=== PATIENT | male | born 1940 | race Caucasian/White ===

== ENCOUNTER 2016-08-19 11:52 | Observation (INO) | payer OTHER ==
[~2016-08-19] VITALS: Ht 165.1 cm; Wt 54.0 kg
[~2016-08-19 11:52] MED LIST: AMOXIL500 MG PO; ASPIR 8181 MG PO; ATIVAN0.5 MG PO; ATORVASTATIN CA20 MG PO; ATORVASTATIN CA40 MG PO; AUGMENTIN 500M500 MG PO; CALCIUM 600600 M1 PO; LANTUS SOL100 UNIT/1 SC; LANTUS100 U/ML SC; LASIX20 MG PO; LASIX40 MG PO; LEVEMIR 10100 UNITS/ SC; LEVSIN-SL0.125 MG SL; METFORMIN500 MG PO; METOPROLOL SUC100 M1 PO; METOPROLOL SUCC25 MG; METOPROLOL SUCC50 M1 PO; NATURAL IRON65 MG PO; NORVASC 2.5 MG2.5 MG PO; NOVOLOG FLEX100 U/ML SC; NOVOLOG100 U/ML SC; OXYCODONE HCL20 M1 PO; PERCOCET 325 MG1 TA2 PO; PLAVIX 75MG TAB75 MG PO; PROAIR HFA8.5 GM INH; ROXICODONE5 MG PO; TOPROL XL25 MG PO; TYLENOL TAB 32325 MG PO; VICODIN 300 MG-1 TAB PO
[2016-08-19 12:03] LABS: ABSOLUTE BASOPHIL COUNT 0.1 /CUMM (0.0-0.2); ABSOLUTE EOSINOPHIL COUNT 0.2 /CUMM (0.0-0.7); ABSOLUTE GRANULOCYTE CT 12.5 /CUMM (1.4-6.5); ABSOLUTE LYMPH COUNT 3.6 /CUMM (1.2-3.4); ABSOLUTE MONOCYTE COUNT 1.1 /CUMM (0.10-0.60); BASOPHIL % 0.5 % (0.0-2.0); GRANULOCYTE % 71.8 % (42.2-75.2); MEAN CORPUSCULAR HGB 30.3 PG (27.0-31.0); MEAN CORPUSCULAR HGB CONC 33.2 G/DL (33.0-37.0); MEAN CORPUSCULAR VOLUME 91.3 FL (80.0-94.0); MEAN PLATELET VOLUME 8.1 FL (7.4-10.4); PLATELET COUNT 228 /CUMM (130-400); RBC DISTRIBUTION WIDTH 13.8 % (11.5-14.5); RED BLOOD CELL CT 3.62 /CUMM (4.70-6.10); WHITE BLOOD CELL COUNT 17.4 /CUMM (4.8-10.8)
--- NOTE | 2016-08-19 12:07 | NUR ---
PT BIBA S/P FOUND UNRESPONSIVE AND TIMBER FALLER UNABLE TO OBTAIN PATENT AIRWAY. PT ARRIVES BREATHING, BUT REPORTS LIKE IT FEELS LIKE THERE'S SOMETHING STUCK IN HIS THROAT. PT'S O2 SAT 100% ON RA. PT VOMITED ?EGG LIKE FOOD BOLUS.
--- NOTE | 2016-08-19 12:17 | ED GENERAL ADULT ---
History of Present Illness General Chief Complaint: General Adult Stated Complaint: BIBA FOR UNRESPONSIVE Source: EMS Exam Limitations: clinical condition, confusion, poor historian, physical impairment Vital Signs & Intake/Output Vital Signs & Intake/Output Vital Signs Date Time Temp Pulse Resp B/P Pulse O2 O2 Flow FiO2 Ox Delivery Rate 08/19 1735 97.5 105 22 124/70 95 Room Air Room Air 08/19 1629 96.0 79 24 126/73 95 Room Air 08/19 1443 97.0 80 18 124/58 100 Room Air 08/19 1343 97.7 08/19 1325 95.6 76 20 107/52 100 Nasal 2.0L Cannula 08/19 1247 100 Nasal 2.0L Cannula 08/19 1229 95.1 08/19 1209 94.1 69 20 116/59 100 Nasal 2.0L Cannula 08/19 1155 93.7 94 22 181/84 99 Room Air Room Air Allergies Coded Allergies: NO KNOWN ALLERGIES (09/27/15) Triage Nurses Notes Reviewed? yes Onset: Abrupt Duration: unknown duration Timing: recent history HPI: 08/19/16 This is a 76-year-old male who presents to the emergency department status post episode of becoming unresponsive. According to EMS the patient had eye surgery today at an outpatient center. He was found unresponsive. He seemed to have some difficulty breathing. A nasal trumpet was placed and his oxygen saturation improved and according to EMS she had trismus. The onset of the symptoms were abrupt, the duration is really unknown, the severity is significant; as his symptoms required him to come to the emergency department. In the ED he was awake but somewhat confused. His oxygen saturation was 98%. His fingerstick was repeated here was 108. He did receive 0.4 mg of Narcan. He subsequently awoke and vomited. A large amount of material came out of his airway. He said that his breathing improved. Over the next 15 minutes he became oriented 3 and fully alert. He currently has no complaints. He is still somewhat sleepy. Chest x-ray and labs were ordered. The patient was signed out to Dr. Bledsoe at 12 PM (TRENT BLEVINS DO) Reconcile Medications Aspirin (Ecotrin*) 81 MG TABLET.DR 1 TAB PO DAILY HEART/BLOOD (Reported) Atorvastatin Calcium 80 MG TABLET 1 TAB PO DAILY CHOLESTEROL (Reported) Clopidogrel Bisulfate (Clopidogrel) 75 MG TABLET 1 TAB PO DAILY BLOOD THINNER (Reported) Furosemide 20 MG TABLET 1 TAB PO DAILY DIURETIC (Reported) Insulin Aspart (Novolog) 100 UNIT/ML VIAL 7-8 UNITS SC BID DM (Reported) Insulin Glargine,Hum.rec.anlog (Lantus Solostar) 100 UNIT/ML (3 ML) INSULN.PEN 7-8 UNIT SC QPM DM (Reported) Lisinopril 5 MG TABLET 1 TAB PO DAILY BP (Reported) Metoprolol Succinate 25 MG TAB 0.5 TAB PO DAILY HEART/BP (Reported) Omeprazole 20 MG CAPSULE.DR 1 CAP PO DAILY GI (Reported) (RAKAN MORALEZ,FRANKY) Past History Travel History Traveled to [place] past 21 day No Medical History Any Pertinent Medical History? see below for history Neurological: NONE, polio EENT: NONE Cardiovascular: CHOL, HTN,HEARTY Respiratory: pneumonia Gastrointestinal: NONE Hepatic: NONE Renal: "KIDNEY PROBLEMS" Musculoskeletal: POLIO Psychiatric: NONE Endocrine: diabetes Blood Disorders: NONE Cancer(s): NONE PLUG WIRER/Reproductive: NONE Other Medical Hx: Polio History of MRSA: No History of VRE: No History of CDIFF: No Surgical History Surgical History: non-contributory, N (a review of his past admission) Psychosocial History Who do you live with Patient/Self Services at Home None What is your primary language Malay Family History Family History, If Any: BROTHER FHx: liver cancer Relation not specified for: FH: diabetes mellitus Hx Contributory? No (TRENT BLEVINS DO) Review of Systems Review of Systems Constitutional: Reports: no symptoms. EENTM: Reports: see HPI. Respiratory: Reports: short of breath. Cardiovascular: Denies: chest pain. GI: Denies: abdominal pain. Genitourinary: Reports: no symptoms. Musculoskeletal: Reports: no symptoms. Skin: Reports: no symptoms. Neurological/Psychological: Reports: confusion. Hematologic/Endocrine: Reports: no symptoms. Immunologic/Allergic: Reports: no symptoms. (TRENT BLEVINS DO) Physical Exam Physical Exam General Appearance: severe distress Head: atraumatic Eyes: Bilateral: PERRL, EOMI. Ears, Nose, Throat: normal ENT inspection, vomitus in airway -suctioned Neck: normal inspection, supple Respiratory: decreased breath sounds Cardiovascular: regular rate/rhythm Peripheral Pulses: 4+ radial (R), 4+ radial (L) Gastrointestinal: non-tender Back: decreased range of motion Extremities: no edema Neurologic/Psych: oriented x 3 (aftyer 15 minutes) Skin: intact, normal color, warm/dry Core Measures ACS in differential dx? Yes CVA/TIA Diagnosis: Yes Severe Sepsis Present: No Septic Shock Present: No (TRENT BLEVINS DO) Progress Differential Diagnoses I considered the following diagnoses in my evaluation of the patient: [Acute myocardial infarction, status post dysrhythmia, adverse drug reaction, CVA, TIA, ] Plan of Care: Orders Procedure Date/time Status Clear Liquid Diet 08/19 L Active OXYGEN SETUP (GEN) 08/19 1805 Active Saline Lock 08/[address] in observation 08/19 180 Active Vital Signs 08/19 180 Active Activity/Ambulation 08/19 180 Active Code Status 08/19 180 Active TROPONIN LEVEL 08/19 1545 Complete URINE DRUG SCREEN FOR ER ONLY 08/19 1155 Complete URINALYSIS 08/19 1155 Complete TROPONIN LEVEL 08/19 115 Complete COMPREHENSIVE METABOLIC PANEL 08/19 1154 Complete CBC WITHOUT DIFFERENTIAL 08/19 1154 Complete EKG 08/19 1154 Active Laboratory Tests 08/19/16 1630: Urine Opiates Screen < 100.00, Methadone Screen < 40, Barbiturate Screen < 60, Ur Phencyclidine Scrn < 6.00, Amphetamines Screen < 100, U Benzodiazepines Scrn < 85, Urine Cocaine Screen < 50, Urine Cannabis Screen < 5.00, Urinalysis LIGHT H, Urine Color YEL, Urine Clarity CLEAR, Urine pH 6.0, Ur Specific [place] 1.020 , Urine Protein 100 H, Urine Ketones NEG, Urine Nitrite NEG, Urine Bilirubin NEG, Urine Urobilinogen 0.2, Ur Leukocyte Esterase NEG, Ur Microscopic SEDIMENT EXAMINED, Urine RBC 1-3, Urine WBC RARE, Ur Epithelial Cells RARE, Urine Bacteria RARE H, Granular Casts RARE H, Urine Hemoglobin SMALL H, Urine Glucose NEG 08/19/16 1600: Troponin I 0.09 08/19/16 1156: Anion Gap 17 H, Estimated GFR 20 L, BUN/Creatinine Ratio 16.8, Glucose 127 H, Calcium 7.2 L, Total Bilirubin 0.4, AST 20, ALT 36, Alkaline Phosphatase 124, Troponin I < 0.01, Total Protein 6.4, Albumin 3.7, Globulin 2.7, Albumin/ Globulin Ratio 1.4, CBC w Diff MAN DIFF ORDERED, RBC 3.62 L, MCV 91.3, MCH 30.3 , RDW 13.8, MPV 8.1, Gran % 71.8, Lymphocytes % 20.6, Monocytes % 6.1, Eosinophils % 1.0, Basophils % 0.5, Absolute Granulocytes 12.5 H, Absolute Lymphocytes 3.6 H, Absolute Monocytes 1.1 H, Absolute Eosinophils 0.2, Absolute Basophils 0.1, Platelet Estimate ADEQUATE, Normocytic RBCs VERIFIED, Normochromic RBCs VERIFIED, Poikilocytosis RARE, PUBS MCHC 33.2 Initial ED EKG: NSR, pvc (TRENT BLEVINS DO) Differential Diagnoses I considered the following diagnoses in my evaluation of the patient: Diagnostic Imaging: Viewed by Me: Radiology Read, CT Scan. Discussed w/RAD: Radiology Read, CT Scan. Radiology Impression: no acute abnormality CXR Impression: no acute abnormality Rhythm Strip: normal sinus rhythm Comments: Continues to feel weak with n/v. 2nd trop elevated but WNL. (FRANKY BLEDSOE MD) Departure Departure Disposition: STILL A PATIENT Condition: Stable Referrals: SEAN CLAY MD (PCP/Family) Departure Forms: Customer Survey General Discharge Information (TRENT BLEVINS DO) Departure Clinical Impression Primary Impression: Altered mental status Secondary Impressions: Aspiration into airway, Leukocytosis, Nausea and vomiting Observation Note Spoke With: LEONA MORALEZ,SAPPHIRE Physician Advisor Notified: MINO MORALEZ,ISABELA [facility] Place Patient In: Non-ED OBS Care Area Rationale for Observation: My rational for observation is as follows cardiac monitoring IV antiemetic IV fluid advance diet serial lab exam cardiology evaluation continuing care discharge planning. (FRANKY BLEDSOE MD) Critical Care Note Critical Care Note Critical Care Time: 30-74 min (TRENT BLEVINS DO)
--- NOTE | 2016-08-19 12:18 | NUR ---
PT ASSISTED TO BED OVIEDO FOR BM. PT ALERT AND ORIENTED, BUT REPEATEDLY ASKING WHERE HE IS. PT RE-ORIENTED. PLACED ON 2L NC FOR COMFORT. WILL CONTINUE TO MONITOR.
--- NOTE | 2016-08-19 12:29 | NUR ---
PT HAD LARGE SOFT BROWN-GREEN BM, KYLIE CARE PROVIDED. RECTAL TEMP 95.1. MULTIPLE WARM BLANKETS PROVIDED. WILL CONTINUE TO MONITOR.
--- NOTE | 2016-08-19 12:30 | NUR ---
PT'S SON WOULD LIKE TO BE CONTACTED OF PLAN OF CARE: [phone]
--- NOTE | 2016-08-19 12:52 | NUR ---
PT TO CAT SCAN VIA STRETCHER NOW.
--- NOTE | 2016-08-19 12:59 | NUR ---
PT RETURNED FROM CT SCAN
--- NOTE | 2016-08-19 13:20 | CT SCAN REPORT ---
EXAMINATION: CT HEAD WITHOUT CONTRAST CLINICAL INFORMATION: Acute mental status change COMPARISON: 03/05/2015 TECHNIQUE: Contiguous axial imaging was performed from the skull base to vertex without intravenous administration of contrast. DLP: 600 mGy-cm FINDINGS: There is no evidence of acute intracranial hemorrhage or territorial infarction. No abnormal mass effect or midline shift is seen. [place] to white matter differentiation is well preserved. No extra-axial fluid collections are identified. The ventricles are normal in size. There is no abnormal attenuation within the brain parenchyma. The osseous structures and soft tissues are normal. Left-sided sphenoid disease again noted. IMPRESSION: No acute intracranial pathology. Sinus disease again noted.
--- NOTE | 2016-08-19 13:40 | RADIOLOGY REPORT ---
EXAMINATION: XR PORTABLE CHEST CLINICAL INFORMATION: Aspiration COMPARISON: 12/03/2015 TECHNIQUE: Portable AP view of the chest was obtained. FINDINGS: No focal consolidation, pulmonary edema, or pleural effusion. Stable cardiomediastinal silhouette. IMPRESSION: No acute cardiopulmonary findings.
--- NOTE | 2016-08-19 13:46 | NUR ---
PT TITRATED DOWN TO RA.
[2016-08-19] MEDS ORDERED: OMEPRAZOLE20 M2 PO (14:11)
[2016-08-19] MEDS ORDERED: FUROSEMIDE20 M1 PO (14:12)
[2016-08-19] MEDS ORDERED: LISINOPRIL5 M1 PO (14:12)
[2016-08-19] MEDS ORDERED: ATORVASTATIN CA80 M1 PO (14:12)
[2016-08-19] MEDS ORDERED: ASPIRIN EC81 M1 PO (14:13)
[2016-08-19] MEDS ORDERED: METOPROLOL SUCC25 M1 PO (14:13)
[2016-08-19] MEDS ORDERED: CLOPIDOGREL75 M1 PO (14:13)
[2016-08-19] MEDS ORDERED: LANTUS SOL100 UNIT/1 SC (14:14)
[2016-08-19] MEDS ORDERED: NOVOLOG100 UNIT/2 SC (14:14)
--- NOTE | 2016-08-19 16:33 | NUR ---
URINE TRIO SENT
--- NOTE | 2016-08-19 17:40 | NUR ---
PT PROVIDED GINGERALE, AND THEN VOMITTED. PT INFORMED TO REMAIN NPO, PT MEDICATED WITH ZOFRAN AND NS LITER AT 125 ML/HR.
--- NOTE | 2016-08-19 18:47 | NUR ---
PT USED URINAL INDEPENDENTLY BUT INFORMED TO USE CALL [facility] NEXT TIME HE NEEDS TO SIT AT EDGE OF BED FOR PT'S SAFETY. CALL [facility] REMAINS IN PLACE.
--- NOTE | 2016-08-19 19:32 | NUR ---
PT'S RM ASSIGNMENT 178 BED 1
--- NOTE | 2016-08-19 20:26 | History & Physical ---
DAVID MORALEZ,ANTOLIN 08/19/162024: General Information and HPI MD Statement: I have seen and personally examined ZIGGYANA LUISAANDRA SR and documented this H& P. The patient is a 76 year old M who presented with a patient stated chief complaint of [I was eating and I passed out]. Source of Information: patient, family History of Present Illness: Patient is a 76 year old gentleman with PMH of HTN, HLD, DM, CKD, polio, CHF, CAD s/p stent (10 years ago), who is BIBA after becoming unresponsive this morning. Most of the history is obtained from patient's son on the phone; patient lives with him. His son reports that patient had breakfast (a sandwich) about noon time today, he was in the parking lot of their apartment complex where he was found unresponsive, EMS told the son that he had the food lodges in this throat and was 'all blue'. Patient himself is more alert on admission compared to the time of arrival to the ED. He is oriented3 and states that all he remembers is that he was eating and then passed out. He reports he had nausea and vomited the foot and then does not remember the rest of the events until he came to the ED. Denies feeling dizzy or lightheaded, no chest pain, but reports shortness of breath and palpitations when he woke up this morning and when he had vomited, denies any bladder or bowel incontinence. According to the son, patient has been very weak and not willing to eat and drink and take care of himself for about two weeks now, he refuses to get finger sticks for BS check and is not clear if sugar levels are well-controlled, also his speech has become slurred. The son gives him his medications and reports to recent changes in medications. He was at an uke operator office the day before presentation for an injection into the eye, apparently due to bleeding in the eye [possibly a vitreous hemorrhage]. His son also states that the patient always has a hard time sleeping and is always in pain (in the back and the legs) . Patient himself denies fevers, reports chills every once in a while, reports chronic coughing, denies symptoms of upper respiratory infection, denies sick contact. reports diarrhea for the past two days, no urinary symptoms, denies problem swallowing. His son reported he had an episode of URI a week ago and vomiting, he also denied any problem with the patient's swallowing. Son: Philip [phone] Allergies/Medications Allergies: Coded Allergies: NO KNOWN ALLERGIES (09/27/15) Home Med list Aspirin (Ecotrin*) 81 MG TABLET.DR 1 TAB PO DAILY HEART/BLOOD (Reported) Atorvastatin Calcium 80 MG TABLET 1 TAB PO DAILY CHOLESTEROL (Reported) Clopidogrel Bisulfate (Clopidogrel) 75 MG TABLET 1 TAB PO DAILY BLOOD THINNER (Reported) Furosemide 20 MG TABLET 1 TAB PO DAILY DIURETIC (Reported) Insulin Aspart (Novolog) 100 UNIT/ML VIAL 7-8 UNITS SC BID DM (Reported) Insulin Glargine,Hum.rec.anlog (Lantus Solostar) 100 UNIT/ML (3 ML) INSULN.PEN 7-8 UNIT SC QPM DM (Reported) Lisinopril 5 MG TABLET 1 TAB PO DAILY BP (Reported) Metoprolol Succinate 25 MG TAB 0.5 TAB PO DAILY HEART/BP (Reported) Omeprazole 20 MG CAPSULE.DR 1 CAP PO DAILY GI (Reported) Past History Travel History Traveled to [place] past 21 day No Medical History Neurological: polio EENT: NONE Cardiovascular: CAD, CHF, CHOL, HTN CARDIAC STENTS Respiratory: pneumonia Gastrointestinal: NONE Hepatic: NONE Renal: CKD Musculoskeletal: POLIO Psychiatric: NONE Endocrine: TYPE II DIABETIC BUT INSULIN DEPENDENT Blood Disorders: NONE Cancer(s): NONE COSTUME DIRECTOR/Reproductive: NONE Other Medical Hx: 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 Denies: chills, diaphoresis, fever. EENTM: Reports: blurred vision. Cardiovascular: Reports: syncope. Denies: chest pain, palpitations, peripheral edema. Respiratory: Reports: cough. Denies: short of breath, sputum production. GI: Reports: diarrhea, nausea (resolved), vomiting (one time before syncope). Denies: abdominal pain. Genitourinary: Reports: no symptoms. Musculoskeletal: Reports: back pain. Skin: Reports: no symptoms. Neurological/Psychological: Reports: weakness (right leg). Hematologic/Endocrine: Reports: no symptoms. Exam & Diagnostic Data Last 24 Hrs of Vital Signs/I&O Vital Signs Date Time Temp Pulse Resp B/P Pulse O2 O2 Flow FiO2 Ox Delivery Rate 08/20 0753 98.2 90 19 120/70 96 04/ 0000 96 Room Air 08/19 2243 98.9 82 12 116/50 96 Room Air 08/19 2020 99.8 89 20 116/56 96 Room Air 08/19 1735 97.5 105 22 124/70 95 Room Air Room Air 08/19 1629 96.0 79 24 126/73 95 Room Air 08/19 1443 97.0 80 18 124/58 100 Room Air 08/19 1343 97.7 08/19 1325 95.6 76 20 107/52 100 Nasal 2.0L Cannula 08/19 1247 100 Nasal 2.0L Cannula 08/19 1229 95.1 08/19 1209 94.1 69 20 116/59 100 Nasal 2.0L Cannula 08/19 1155 93.7 94 22 181/84 99 Room Air Room Air Intake & Output 08/20 1600 08/20 0800 04/ 0000 Intake Total 860 Output Total 600 Balance 860 -600 Intake, IV 620 Intake, Oral 240 Output, Urine 600 Patient 54.431 kg Weight Physical Exam General Appearance Alert, Oriented X3, Cooperative, No Acute Distress Skin there are several old and new excoriated skin lesions on the anterior of the shins on bothe sides, more prominent on the left side. HEENT Atraumatic, EOMI, dry mucous membranes Neck Supple, No JVD Cardiovascular Normal S1, Normal S2, No Murmurs Lungs Clear to Auscultation, Normal Air Movement Abdomen Soft, No Tenderness Neurological Normal Speech, Sensation Intact, distal right lower leg foces diminished (chronic from polio) Extremities No Edema, Normal Pulses Vascular Pulses Symmetrical Diagnostic Data CXR Results SERVICE DATE: 08/19/16-1212 EXAM TYPE: RAD - XRY-PORTABLE CHEST XRAY EXAMINATION: XR PORTABLE CHEST CLINICAL INFORMATION: Aspiration COMPARISON: 12/03/2015 TECHNIQUE: Portable AP view of the chest was obtained. FINDINGS: No focal consolidation, pulmonary edema, or pleural effusion. Stable cardiomediastinal silhouette. IMPRESSION: No acute cardiopulmonary findings. Other Results SERVICE DATE: 08/19/16 EXAM TYPE: CAT - CT HEAD WO IV CONTRAST EXAMINATION: CT HEAD WITHOUT CONTRAST CLINICAL INFORMATION: Acute mental status change COMPARISON: 03/05/2015 TECHNIQUE: Contiguous axial imaging was performed from the skull base to vertex without intravenous administration of contrast. DLP: 600 mGy-cm FINDINGS: There is no evidence of acute intracranial hemorrhage or territorial infarction. No abnormal mass effect or midline shift is seen. [place] to white matter differentiation is well preserved. No extra-axial fluid collections are identified. The ventricles are normal in size. There is no abnormal attenuation within the brain parenchyma. The osseous structures and soft tissues are normal. Left-sided sphenoid disease again noted. IMPRESSION: No acute intracranial pathology. Sinus disease again noted. Assessment/Plan Assessment: Patient is a 76 year old gentleman with PMH of HTN, HLD, DM, CKD, polio, CHF, CAD s/p stent (10 years ago), who is BIBA after an episode of LOC with aspiration of food in his airway. Patient also is reported to have weakness, poor oral intake and non-compliance with sugar control, for the past 2 weeks. He is found to be dehydrated with hypernatremia metabolic acidosis, leukocytosis with no fever or CXR findings, acute decline in kidney function. He is admitted to telemetry floor for the work up of syncope, rule out ACS, evaluation for possible aspiration, and for the management of hypernatremia, dehydration and deranged kidney function. Problem list and plan: Loss of consciousness, possibly due to airway obstruction secondary to aspiration Patient passed swallow eval at bedside, denies dysphagia There is no new focal neurologic findings, CT of the head negative for acute intracranial pathology, however TIA can be in the differential and needs to be ruled out Patient has CAD history, denies chest pain or dizziness, arrhythmias. First time troponin came back 0.09, second time 0.42, no acute EKG changes noted. possible etiology is demand ischemia * telemonitoring * vital signs every shift * perform swallow evaluation * check orthostats * continue serial troponin and EKG * Cardiology consult (Dr. Cazares was called at 11:30 pm and plan was discussed) * ECHOcardiogram in am GABY on CKD, Hypernatremia, hypomagnesemia possibly due to dehydration, poor oral intake * continue IV fluids * IV magnesium sulfate * repeat BEP in am Metabolic acidosis AG metabolic acidosis, possibly due to kidney dysfunction * Continue hydration * repeat BEP Leukocytosis Absent fever, no CXR findings, UA negative for nitrite and LE. Possibly due to pneumonitis in the setting of aspiration. * watch off antibiotics * monitor vital signs * monitor CBC History of CAD s/p stent, CHF, HTN, HLD Patient has elevated troponin to 0.42, no acute EKG changes. * continue metoprolol, statin, aspirin, plavix * follow up cardiology recommendations History of DM Recently has become non-compliant with BS checks, tired of fingerstick glucose checks * HbA1C * Novolog Sliding scale * levemir PT evaluation and treatment for worsening weakness CLear liquids pending swallow eval Pain control with Tylenol, Percocet DVT px with SC heparin Full code As Ranked By This Provider Problem List: 1. Diabetes mellitus type 2 2. Hypertension 3. Acute on chronic renal failure 4. Chronic anemia 5. Elevated troponin 6. Patient is full code 7. Hyperlipidemia 8. Altered mental status 9. Nausea and vomiting 10. Leukocytosis 11. Aspiration into airway Core Measures/Miscellaneous Acute Coronary Syndrome ACS Diagnosis: No Cerebrovascular Accident CVA/TIA Diagnosis: Yes Congestive Heart Failure CHF Diagnosis: Yes Venous Thromboembolism VTE Risk Factors: Acute medical illness, Age > 40 No [facility] VTE prophylaxis d/t: No contraindications No VTE Pharm Prophylaxis d/t: No contraindications VTE Diagnosis: No VTE Type: NONE VTE Confirmed by (Test): NONE Severe Sepsis Severe Sepsis Present: No Septic Shock Septic Shock Present: No Miscellaneous Documentation Attending Case Discussed With: FRANK MADISON MD Primary Care Physician: SEAN CLAY MD Patient sees these Specialists Dr. Cazares Level of Patient Care: Telemetry KODI ADKINS 08/20/16 0059: Resident Review Statement Resident Statement: examined this patient, discussed with internist, agreed with internist, discussed with family, reviewed EMR data (avail), reviewed images, amended to note Other Findings: This is 76-year-old male with past medical history of coronary artery disease status post cardiac stent, hyperlipidemia, polio, diabetes mellitus, CK D stage III, hypertension. Patient presented to the ED via EMS status post passing out. According to the patient he was eating after he finished ophthalmic procedure and the ophthalmology clinic today when he choked and solid food. According to the EMS ( He was found unresponsive, with difficulty breathing) in ED ((was awake but somewhat confused. His oxygen saturation was 98%. His fingerstick was repeated here was 108. He did receive 0.4 mg of Narcan. He subsequently awoke and vomited. A large amount of material came out of his airway.)) . We contact his sister and she stated that for the past couple week he was slightly confused and he was complaining of dizziness. Physical examination, lab and imaging as above. Assessment: -Syncope: Syncope most likely due to choking, as the history not well clear vasovagal and cardiac causes need to be ruled out giving the patient comorbidities. Which will include echocardiogram, orthostatic vital signs need to be checked as the patient seems to be volume depleted. -Leukocytosis/questionable aspiration pneumonitis: Giving the fact the patient stated that the Estrada went to the wrong way when he was swallowing, and the leukocytosis picture despite there is no imaging evidence to still possible that he had aspiration pneumonitis but as the patient doesn't have any fever, the patient can be monitored of antibiotic for now but he will need swallow evaluation despite he passed the bedside swallow eval. -Acute on chronic kidney disease/hypernatremia/hypomagnesemia: Most likely due to volume depletion as his baseline creatinine is 2-2.5, also the hemoconcentration on the CBC. Hypernatremia improved after fluid resuscitation in the ED so its go with a picture of volume depletion. Patient will need magnesium supplement. -Positive troponin: After admission the first set of troponin came back positive at 0.49, there is no significant EKG changes, Dr. Cazares his wastewater project engineer was notified and advice to keep trending his troponin and EKG without any Anticoagulation for now. Plan: -Admit patient to telemetry floor -Vitals every shift, I and O's, -Serial troponin and EKG -Echocardiogram, cardiology consultation -Orthostatic vitals -Accu-Chek, insulin sliding scale -Hold home medication of lisinopril and Lasix for now -Physical therapy consultation -Swallowing evaluation -Full liquid diet for now -DVT prophylaxis on heparin -Full code LEONA MORALEZ, [facility] 08/20/16 0359: Attending MD Review Statement Attending Statement Attending MD Statement: examined this patient, discuss w/resident/PA/ASSEMBLY OPERATOR, agreed w/resident/PA/ASSEMBLY OPERATOR Attending Assessment/Plan: 76 yo M with h/o polio, HTN, CAD s/p stent, cardiomyopathy, chronic systolic CHF , DM, gastritis, CKD stage 4, was brought in for evaluation of episode of unresponsiveness. History as obtained from patient's sister and son. Patient unable to recall all events. He was eating an egg sandwich when he choked on the food, had difficulty breathing and became unresponsive. On ER arrival, he was more awake but confused, received Narcan with ?good response, O2 sats were stable and sugar was 108. He did have an episode of vomiting in the ER. Of note, patient has had an ophthalmic procedure as outpatient ?injection no clear details available. Over past few weeks, patient has not been eating or drinking well, and has been weak/ fatigued and c/o lightheadedness. VSS. Patient is awake, alert and oriented, has dry mucous membranes. Labs: WBC 17.4, Na 150, bicarb 15, AG 17, BUN 52, creat 3.1 (baseline 2.2-2.5), glucose 127, calcium 7.2, trop - <0.01 --> 0.09. UA neg, Utox neg. CXR and CT head neg. EKG:: Sinus tachycardia, first degree heart block, Qtc 540. Echo (2014): EF 55%. 1. Unresponsive episode followed by confusion in the setting of aspiration with possible pneumonitis. 23 Observation on Telemetry, rule out arrhythmias, check orthostats, serial EKG and troponin, Echo, Cardio consult (Dr. Cazares). Replete electrolytes to keep K > 4.0 amd Mag > 2.0. Please note, his 3rd troponin was elevated at 0.42 with no new EKG changes. Dr. Cazares aware, likely demand ischemia, will trend. Continue aspiration precautions, patient passed bedside swallow. Will keep him on a liquid diet, but obtain official swallow in AM. Leukocytosis is likely reactive, will monitor off antibiotics. If he becomes hypoxic or febrile, will consider treatment for aspiration. 2. Hypernatremia, dehydration, acute on CKD. After initial hydration, his sodium levels improved. Will continue with hydration and trend renal functions. He has metabolic acidosis in the setting of renal dysfunction. AG has resolved. Hold lisinopril and lasix. 3. Physical deconditioning. PT eval in AM. 4. Continue aspirin, plavix, statin, metoprolol, prilosec, novolog and lantus. DVT ppx Hep SC. Full code.
--- NOTE | 2016-08-19 20:30 | NUR ---
HOUSESTAFF AT BEDSIDE FOR EVAL.
--- NOTE | 2016-08-19 20:32 | NUR ---
THIS RN CALLED TELE FOR REPORT. RECEIVING NURSE STATES SHE WILL RETURN CALL WHEN LESS BUSY.
--- NOTE | 2016-08-19 21:05 | NUR ---
REPORT GIVEN TO MARCIA TRAN.
[2016-08-19 22:43] VITALS: BP 116/50
--- NOTE | 2016-08-20 06:15 | NUR ---
NURSING:PT REFUSED [address] MORIN NOTIFIED. WILL REATTEMPT TO DRAW BLOOD AGAIN WITH 0600AM LABS
[2016-08-20 07:53] VITALS: BP 120/70
[2016-08-20 08:34] LABS: ABSOLUTE EOSINOPHIL COUNT 0 /CUMM (0.0-0.7); ABSOLUTE MONOCYTE COUNT 1.1 /CUMM (0.10-0.60)
--- NOTE | 2016-08-20 09:04 | PN- Cardiology ---
Subjective Subjective: Patient seen and examined, resting comfortably in his hospital bed. Offers no complaints. Review of Systems Constitutional: Reports: see HPI. Objective Vital Signs and I&Os Vital Signs Date Time Temp Pulse Resp B/P Pulse O2 O2 Flow FiO2 Ox Delivery Rate 08/20 0753 98.2 90 19 120/70 96 08/20 0000 96 Room Air 08/19 2243 98.9 82 12 116/50 96 Room Air 08/19 2020 99.8 89 20 116/56 96 Room Air 08/19 1735 97.5 105 22 124/70 95 Room Air Room Air 08/19 1629 96.0 79 24 126/73 95 Room Air 08/19 1443 97.0 80 18 124/58 100 Room Air 08/19 1343 97.7 08/19 1325 95.6 76 20 107/52 100 Nasal 2.0L Cannula 08/19 1247 100 Nasal 2.0L Cannula 08/19 1229 95.1 08/19 1209 94.1 69 20 116/59 100 Nasal 2.0L Cannula 08/19 1155 93.7 94 22 181/84 99 Room Air Room Air Intake & Output 08/20 1600 08/20 0800 08/20 0000 08/19 1600 08/19 0800 08/19 0000 Intake Total 860 Output Total 600 Balance 860 -600 Intake, IV 620 Intake, Oral 240 Output, Urine 600 Patient 120 lb 120 lb Weight Physical Exam General Appearance: well developed/nourished, no apparent distress, alert, awake Ears, Nose, Throat: normal pharynx, normal ENT inspection Respiratory: normal breath sounds, chest non-tender, no respiratory distress Cardiovascular: normal peripheral pulses, irregularly irregular, normal s1 and s2 Abdomen: normal bowel sounds, soft, non-tender Back: normal inspection, normal range of motion Current Medications: Current Medications Sig/Ladonna Start time Last Medication Dose Route Stop Time Status Admin Acetaminophen 500 MG Q6P PRN 08/19 2045 AC PO Aspirin Buffered 81 MG DAILY 08/20 1000 AC PO Atorvastatin Calcium 80 MG 1700 08/20 1700 AC PO Clopidogrel Bisulfate 75 MG DAILY 08/20 1000 AC PO Heparin Sodium 5,000 UNIT Q8 08/19 2200 AC (Porcine) SC Insulin Aspart 0 TIDAC 08/20 0800 AC SC Insulin Detemir 7 UNITS QPM 08/19 2200 AC SC Magnesium Sulfate 1 GM Q2H 08/20 0230 DC 08/20 Dextrose/Water 100 ML IV 08/20 06 0432 Metoclopramide HCl 0 .STK-MED ONE 08/19 1830 DC .ROUTE Metoclopramide HCl 10 MG ONCE ONE 08/19 1815 DC 08/19 IV 08/19 1816 1834 Metoprolol Tartrate 12.5 MG DAILY 08/20 1000 AC PO Naloxone HCl 0.4 MG ONCE ONE 08/19 1230 DC 08/19 IV 08/19 1231 1231 Naloxone HCl 0 .STK-MED ONE 08/19 1159 DC .ROUTE Omeprazole 20 MG DAILY 08/20 1000 AC PO Ondansetron HCl 0 .STK-MED ONE 08/19 1732 DC .ROUTE Ondansetron HCl 4 MG ONCE ONE 08/19 1730 DC 08/19 IV 08/19 1731 1740 Oxycodone/ 2 TAB Q6P PRN 08/19 2045 AC Acetaminophen PO Sodium Chloride 1,000 ML ONCE ONE 08/19 2145 AC 08/20 IV 08/20 1104 0124 Sodium Chloride 1,000 ML ONCE ONE 08/19 1730 DC 08/19 IV 08/20 0129 1740 Results Last 48 Hrs of Labs/Mics: Laboratory Tests 08/20/16 0700: Troponin I Cancelled 08/20/16 0700: Anion Gap 11, Estimated GFR 20 L, BUN/Creatinine Ratio 17.3, Magnesium 1.7, Troponin I 0.40 *H, CBC w Diff Pending, WBC Pending, RBC Pending, Hgb Pending, Hct Pending, MCV Pending, MCH Pending, RDW Pending, Plt Count Pending, MPV Pending, PUBS MCHC Pending 08/19/16 2210: Magnesium 1.3 L, Troponin I 0.42 *H, TSH 0.718, Free T4 1.32 08/19/16 1630: Urine Opiates Screen < 100.00, Methadone Screen < 40, Barbiturate Screen < 60, Ur Phencyclidine Scrn < 6.00, Amphetamines Screen < 100, U Benzodiazepines Scrn < 85, Urine Cocaine Screen < 50, Urine Cannabis Screen < 5.00, Urinalysis LIGHT H, Urine Color YEL, Urine Clarity CLEAR, Urine pH 6.0, Ur Specific [place] 1.020 , Urine Protein 100 H, Urine Ketones NEG, Urine Nitrite NEG, Urine Bilirubin NEG, Urine Urobilinogen 0.2, Ur Leukocyte Esterase NEG, Ur Microscopic SEDIMENT EXAMINED, Urine RBC 1-3, Urine WBC RARE, Ur Epithelial Cells RARE, Urine Bacteria RARE H, Granular Casts RARE H, Urine Hemoglobin SMALL H, Urine Glucose NEG 08/19/16 1600: Anion Gap 13, Estimated GFR 20 L, BUN/Creatinine Ratio 17.7, Troponin I 0.09 08/19/16 1156: Anion Gap 17 H, Estimated GFR 20 L, BUN/Creatinine Ratio 16.8, Glucose 127 H, Calcium 7.2 L, Total Bilirubin 0.4, AST 20, ALT 36, Alkaline Phosphatase 124, Troponin I < 0.01, Total Protein 6.4, Albumin 3.7, Globulin 2.7, Albumin/ Globulin Ratio 1.4, CBC w Diff MAN DIFF ORDERED, RBC 3.62 L, MCV 91.3, MCH 30.3 , RDW 13.8, MPV 8.1, Gran % 71.8, Lymphocytes % 20.6, Monocytes % 6.1, Eosinophils % 1.0, Basophils % 0.5, Absolute Granulocytes 12.5 H, Absolute Lymphocytes 3.6 H, Absolute Monocytes 1.1 H, Absolute Eosinophils 0.2, Absolute Basophils 0.1, Platelet Estimate ADEQUATE, Normocytic RBCs VERIFIED, Normochromic RBCs VERIFIED, Poikilocytosis RARE, PUBS MCHC 33.2 Recent Imaging Studies: PATIENT: MYRTLE SCHAEFER PRESENT AGE: 78 PATIENT ACCOUNT NO: [id number] : [birth year] LOCATION: [facility] ORDERING PHYSICIAN: DEIDRA JARA MD SERVICE DATE: 08/18/16 EXAM TYPE: NUC - MYOCARDIAL PERFUSION IMAGING EXAMINATION: NM MYOCARDIAL PERFUSION CLINICAL INFORMATION: Hypertension COMPARISON: None TECHNIQUE: 18.9 mCi technetium Myoview for stress imaging and 32.4 mCi technetium Myoview for rest imaging. SPECT imaging in the coronal, axial and sagittal planes and gated imaging is also obtained here. FINDINGS: Review of the slice imaging demonstrates a Small mild intensity defect of the inferior wall. This may be artifactual related to diaphragm. This appears fixed. No other defects Review of the wall motion demonstrates normal wall motion. The calculated ejection fraction 57%. IMPRESSION: Mild fixed inferior defect may well be diaphragmatic attenuation. No scintigraphic evidence for pharmacologically induced myocardium at risk. Normal wall motion and ejection fraction . DICTATED BY: TRENT DYER MD DATE/TIME DICTATED:08/18/161712 POCKETED SPRING MACHINE OPERATOR:MAUREEN DATE/TIME TRANSCRIBED:08/18/161712 CONFIDENTIAL, DO NOT COPY WITHOUT APPROPRIATE AUTHORIZATION. <Electronically signed in Other Vendor System> SIGNED BY: TRENT DYER MD 08/18/16 5325 Assessment/Plan Assessment/Plan Assessment- 1. NSTEMI 2. Acute on chronic HFpEF 3. GABY on CKD 4. Acute anemia, multifactorial- acute blood loss vs 2/2 renal insufficiency vs iron deficiency 5. PAF 6. HTN 7. Goutry arthritis of right knee, flare seems to have resolved Plan- - He is guaiac positive, s/p 1 U PRBC transfusion yesterday, pending AM CBC, if worse consider GI consult (He has seen Dr. Townsend in the past) - Cardiac cath deferred for now, given no evidence of ischemia on nuclear images - BP stable, continue anti-hypertensives and ASA - Given possible GI bleed, no Heparin drip or NOAC for now, once his CBC has normalized and is stable, will readdress anti-coagulation as an outpatient - He remains in net-negative fluid balance, continue Lasix, manager people today 2.1 around his baseline Continue telemetry? No
--- NOTE | 2016-08-20 09:07 | Cons- Cardiology ---
ADEEL MORALEZ,FANY 08/20/16 0907: General Information and HPI Consulting Request Date of Consult: 08/20/16 Requested By: FRANK MADISON MD Reason for Consult: Positive troponins Source of Information: patient, family, old records Exam Limitations: no limitations History of Present Illness: Mr. Bernard is a 76-year-old gentleman with a medical history significant for diabetes mellitus, hypertension, hyperlipidemia, chronic kidney disease, HFpEF ( per echo 2014), coronary artery disease with stent placement in the obtuse marginal artery over 5 years ago, tobacco use, he presented to the emergency room the ambulance as he was found to be unresponsive in his car after possibly choking on a breakfast sandwich. This happened in his car while his sister was present. Patient states that he feels that he passed out for a few seconds and when he was awake, he noticed EMS was actively working with him. States that he might have passed out for a few seconds to minutes. Denies any chest pain during the episode or after or at present. Denies any shortness of breath. Cardiology evaluation was requested secondary to elevated troponins last night. Patient does see Dr. 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 Allergies/Medications Allergies: Coded Allergies: NO KNOWN ALLERGIES (09/27/15) Home Med List: Aspirin (Ecotrin*) 81 MG TABLET.DR 1 TAB PO DAILY HEART/BLOOD (Reported) Atorvastatin Calcium 80 MG TABLET 1 TAB PO DAILY CHOLESTEROL (Reported) Clopidogrel Bisulfate (Clopidogrel) 75 MG TABLET 1 TAB PO DAILY BLOOD THINNER (Reported) Furosemide 20 MG TABLET 1 TAB PO DAILY DIURETIC (Reported) Insulin Aspart (Novolog) 100 UNIT/ML VIAL 7-8 UNITS SC BID DM (Reported) Insulin Glargine,Hum.rec.anlog (Lantus Solostar) 100 UNIT/ML (3 ML) INSULN.PEN 7-8 UNIT SC QPM DM (Reported) Lisinopril 5 MG TABLET 1 TAB PO DAILY BP (Reported) Metoprolol Succinate 25 MG TAB 0.5 TAB PO DAILY HEART/BP (Reported) Omeprazole 20 MG CAPSULE.DR 1 CAP PO DAILY GI (Reported) Review of Systems Review of Systems Constitutional: Reports: see HPI. 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 Surgical History Surgical History: stent 2010 Family History Relations & Conditions If Any: BROTHER FHx: liver cancer Relation not specified for: FH: diabetes mellitus Psychosocial History Services at Home: None Smoking Status: Former Smoker ETOH Use: denies use Illicit Drug Use: denies illicit drug use Exam & Diagnostic Data Vital Signs and I&O Vital Signs Date Time Temp Pulse Resp B/P Pulse O2 O2 Flow FiO2 Ox Delivery Rate 08/20 0753 98.2 90 19 120/70 96 08/20 0000 96 Room Air 08/19 2243 98.9 82 12 116/50 96 Room Air 08/19 2020 99.8 89 20 116/56 96 Room Air 08/19 1735 97.5 105 22 124/70 95 Room Air Room Air 08/19 1629 96.0 79 24 126/73 95 Room Air 08/19 1443 97.0 80 18 124/58 100 Room Air 08/19 1343 97.7 08/19 1325 95.6 76 20 107/52 100 Nasal 2.0L Cannula 08/19 1247 100 Nasal 2.0L Cannula 08/19 1229 95.1 08/19 1209 94.1 69 20 116/59 100 Nasal 2.0L Cannula 08/19 1155 93.7 94 22 181/84 99 Room Air Room Air Intake & Output 08/20 1600 08/20 0800 08/20 0000 08/19 1600 08/19 0800 08/19 0000 Intake Total 860 Output Total 600 Balance 860 -600 Intake, IV 620 Intake, Oral 240 Output, Urine 600 Patient 120 lb 120 lb Weight Physical Exam General Appearance: well developed/nourished, no apparent distress, alert, awake Eyes: Bilateral: normal appearance, PERRL, EOMI. Ears, Nose, Throat: normal pharynx, normal ENT inspection Respiratory: normal breath sounds, chest non-tender Cardiovascular: regular rate/rhythm Gastrointestinal: normal bowel sounds, soft, non-tender Extremities: right foot drop Labs/Aldo Results: Laboratory Tests 08/20 08/20 08/19 0700 0700 2210 Chemistry Sodium (137 - 145 mmol/L) 143 Potassium (3.5 - 5.1 mmol/L) 4.8 Chloride (98 - 107 mmol/L) 114 H Carbon Dioxide (22 - 30 mmol/L) 17 L Anion Gap (5 - 16) 11 BUN (9 - 20 mg/dL) 52 H Creatinine (0.7 - 1.2 mg/dL) 3.0 H Estimated GFR (>60 ml/min) 20 L BUN/Creatinine Ratio (7 - 25 %) 17.3 Magnesium (1.6 - 2.3 mg/dL) 1.7 1.3 L Troponin I (<0.11 ng/ml) Cancelled 0.40 *H 0.42 *H TSH (0.270 - 4.200 uIU/mL) 0.718 Free T4 (0.78 - 2.44 ng/dL) 1.32 Hematology CBC w Diff Pending WBC Pending RBC Pending Hgb Pending Hct Pending MCV Pending MCH Pending RDW Pending Plt Count Pending MPV Pending PUBS MCHC Pending 08/19 08/19 1630 1600 Chemistry Sodium (137 - 145 mmol/L) 147 H Potassium (3.5 - 5.1 mmol/L) 4.7 Chloride (98 - 107 mmol/L) 118 H Carbon Dioxide (22 - 30 mmol/L) 15 L Anion Gap (5 - 16) 13 BUN (9 - 20 mg/dL) 53 H Creatinine (0.7 - 1.2 mg/dL) 3.0 H Estimated GFR (>60 ml/min) 20 L BUN/Creatinine Ratio (7 - 25 %) 17.7 Troponin I (<0.11 ng/ml) 0.09 Toxicology Urine Opiates Screen (>2000 NG/ML) < 100.00 Methadone Screen (>300 NG/ML) < 40 Barbiturate Screen (>200 NG/ML) < 60 Ur Phencyclidine Scrn (>25 NG/ML) < 6.00 Amphetamines Screen (>1000 NG/ML) < 100 U Benzodiazepines Scrn (>200 NG/ML) < 85 Urine Cocaine Screen (>300 NG/ML) < 50 Urine Cannabis Screen (>50 NG/ML) < 5.00 Urines Urinalysis LIGHT H Urine Color (YEL,AMB,STR) YEL Urine Clarity (CLEAR) CLEAR Urine pH (5.0 - 8.0) 6.0 Ur Specific [place] (1.001 - 1.035) 1.020 Urine Protein (NEG,<30 MG/DL) 100 H Urine Ketones (NEG) NEG Urine Nitrite (NEG) NEG Urine Bilirubin (NEG) NEG Urine Urobilinogen (0.1 - 1.0 EU/dl) 0.2 Ur Leukocyte Esterase (NEG) NEG Ur Microscopic SEDIMENT EXAMINED Urine RBC (0 - 5 /HPF) 1-3 Urine WBC (0 - 2 /HPF) RARE Ur Epithelial Cells (NONE,FEW) RARE Urine Bacteria (NEG/NONE) RARE H Granular Casts (NONE /LPF) RARE H Urine Hemoglobin (NEG) SMALL H Urine Glucose (N MG/DL) NEG 08/19 1156 Chemistry Sodium (137 - 145 mmol/L) 150 H Potassium (3.5 - 5.1 mmol/L) 4.1 Chloride (98 - 107 mmol/L) 118 H Carbon Dioxide (22 - 30 mmol/L) 15 L Anion Gap (5 - 16) 17 H BUN (9 - 20 mg/dL) 52 H Creatinine (0.7 - 1.2 mg/dL) 3.1 H Estimated GFR (>60 ml/min) 20 L BUN/Creatinine Ratio (7 - 25 %) 16.8 Glucose (65 - 99 mg/dL) 127 H Calcium (8.4 - 10.2 mg/dL) 7.2 L Total Bilirubin (0.2 - 1.3 mg/dL) 0.4 AST (17 - 59 U/L) 20 ALT (21 - 72 U/L) 36 Alkaline Phosphatase (< 127 U/L) 124 Troponin I (<0.11 ng/ml) < 0.01 Total Protein (6.3 - 8.2 g/dL) 6.4 Albumin (3.5 - 5.0 g/dL) 3.7 Globulin (1.9 - 4.2 gm/dL) 2.7 Albumin/Globulin Ratio (1.1 - 2.2 %) 1.4 Hematology CBC w Diff MAN DIFF ORDERED WBC (4.8 - 10.8 /CUMM) 17.4 H RBC (4.70 - 6.10 /CUMM) 3.62 L Hgb (14.0 - 18.0 G/DL) 11.0 L Hct (42 - 52 %) 33.0 L MCV (80.0 - 94.0 FL) 91.3 MCH (27.0 - 31.0 PG) 30.3 RDW (11.5 - 14.5 %) 13.8 Plt Count (130 - 400 /CUMM) 228 MPV (7.4 - 10.4 FL) 8.1 Gran % (42.2 - 75.2 %) 71.8 Lymphocytes % (20.5 - 51.1 %) 20.6 Monocytes % (1.7 - 9.3 %) 6.1 Eosinophils % (0 - 5 %) 1.0 Basophils % (0.0 - 2.0 %) 0.5 Absolute Granulocytes (1.4 - 6.5 /CUMM) 12.5 H Absolute Lymphocytes (1.2 - 3.4 /CUMM) 3.6 H Absolute Monocytes (0.10 - 0.60 /CUMM) 1.1 H Absolute Eosinophils (0.0 - 0.7 /CUMM) 0.2 Absolute Basophils (0.0 - 0.2 /CUMM) 0.1 Platelet Estimate (ADEQUATE) ADEQUATE Normocytic RBCs VERIFIED Normochromic RBCs VERIFIED Poikilocytosis RARE PUBS MCHC (33.0 - 37.0 G/DL) 33.2 Diagnostic Data EKG Results Rate 84, [place] 160, QRS 100, QTC 483 Sinus rhythm, LVH, nonspecific T-wave abnormalities, peaker T waves (old) CXR Results PATIENT: KIM BERNARD PRESENT AGE: 76 PATIENT ACCOUNT NO: [id number] : 39 LOCATION: [facility] ORDERING PHYSICIAN: FRANKY BLEDSOE MD SERVICE DATE: 08/19/16 EXAM TYPE: RAD - XRY-PORTABLE CHEST XRAY EXAMINATION: XR PORTABLE CHEST CLINICAL INFORMATION: Aspiration COMPARISON: 12/03/2015 TECHNIQUE: Portable AP view of the chest was obtained. FINDINGS: No focal consolidation, pulmonary edema, or pleural effusion. Stable cardiomediastinal silhouette. IMPRESSION: No acute cardiopulmonary findings. DICTATED BY: IRINA AGOSTO MD DATE/TIME DICTATED:08/19/161332 X RAY CONTROL EQUIPMENT REPAIRER:MAUREEN DATE/TIME TRANSCRIBED:08/19/161332 CONFIDENTIAL, DO NOT COPY WITHOUT APPROPRIATE AUTHORIZATION. <Electronically signed in Other Vendor System> SIGNED BY: IRINA AGOSTO MD 09/01 1340 Other Results PATIENT: KIM BERNARD PRESENT AGE: 76 PATIENT ACCOUNT NO: [id number] : 39 LOCATION: [facility] ORDERING PHYSICIAN: TRENT BLEVINS DO SERVICE DATE: 08/19/16-1217 EXAM TYPE: CAT - CT HEAD WO IV CONTRAST EXAMINATION: CT HEAD WITHOUT CONTRAST CLINICAL INFORMATION: Acute mental status change COMPARISON: 03/05/2015 TECHNIQUE: Contiguous axial imaging was performed from the skull base to vertex without intravenous administration of contrast. DLP: 600 mGy-cm FINDINGS: There is no evidence of acute intracranial hemorrhage or territorial infarction. No abnormal mass effect or midline shift is seen. [place] to white matter differentiation is well preserved. No extra-axial fluid collections are identified. The ventricles are normal in size. There is no abnormal attenuation within the brain parenchyma. The osseous structures and soft tissues are normal. Left-sided sphenoid disease again noted. IMPRESSION: No acute intracranial pathology. Sinus disease again noted. DICTATED BY: SYDNIE POWELL MD DATE/TIME DICTATED:08/19/161315 X RAY CONTROL EQUIPMENT REPAIRER:MAUREEN DATE/TIME TRANSCRIBED:08/19/161315 CONFIDENTIAL, DO NOT COPY WITHOUT APPROPRIATE AUTHORIZATION. <Electronically signed in Other Vendor System> SIGNED BY: SYDNIE POWELL MD 08/19/16 1320 Assessment/Plan Assessment/Plan Assessment- 1. Positive troponins, likely 2/2 demand vs reocclusive CAD 2. Syncope, witnessed liekly 2/2 choking and possible aspiration 3. HTN 4. HLD 5. HFrEF, chronic 6. Hypomagnesemia 7. DM 8. CKD Stage III 9. Known CAD s/p stent of the obtuse marginal branch Plan- - Continue tele monitoring - No heparin drip for now - Continue ASA, plavix, statin, beta isabel - Echocardiogram (please make sure this gets done today) - Replete magnesium - Monitor for aspiration PNA - Strict I's and O's - Add on pro-BNP to admission labs - NPO after midnight for Presantine stress test in the morning Problem List: 1. Leukocytosis 2. Aspiration into airway 3. Altered mental status 4. HTN (hypertension) 5. CKD (chronic kidney disease) Consult Acknowledgment - Thank you for your consult request. JOSE ALFREDO GUSTAFSON MD 08/20/16 1200: Assessment/Plan Assessment/Plan Attending addendum: I have seen and examined the patient. The case was discussed with the patient and the housestaff / primary attending. The patient's elevated troponin is most likely related to demand ischemia, however, in view of his known CAD and prior presentation, I would suggest that we perform a PTN nuclear stress test prior to discharge to guide further management. Echo pending. Consult Acknowledgment - Thank you for your consult request.
[2016-08-20 09:33] LABS: ABSOLUTE BASOPHIL COUNT 0 /CUMM (0.0-0.2); ABSOLUTE GRANULOCYTE CT 16.8 /CUMM (1.4-6.5); ABSOLUTE LYMPH COUNT 1.4 /CUMM (1.2-3.4); BASOPHIL % 0.1 % (0.0-2.0); EOSINOPHIL % 0 % (0-5); MEAN CORPUSCULAR HGB 30.6 PG (27.0-31.0); MEAN CORPUSCULAR HGB CONC 33.4 G/DL (33.0-37.0); MEAN CORPUSCULAR VOLUME 91.5 FL (80.0-94.0); PLATELET COUNT 161 /CUMM (130-400); RBC DISTRIBUTION WIDTH 13.7 % (11.5-14.5); WHITE BLOOD CELL COUNT 19.3 /CUMM (4.8-10.8)
[2016-08-20 10:00] LABS: HEMATOCRIT 26.6 % (42-52)
--- NOTE | 2016-08-20 11:18 | PN- Housestaff ---
Subjective Follow-up For: Unresponsiveness Complaints: no complaints Tele-Events Since Last Visit: Sinus rhythm, heart rate 75-83, no overnight events were noted. Subjective: He was comfortable this morning. Vitals were stable overnight. Did not have any complaints. Review of Systems Constitutional: Reports: see HPI. Objective Last 24 Hrs of Vital Signs/I&O Vital Signs Date Time Temp Pulse Resp B/P Pulse O2 O2 Flow FiO2 Ox Delivery Rate 08/20 1106 98.2 90 19 120/70 08/20 0753 98.2 90 19 120/70 96 08/20 0000 96 Room Air 08/19 2243 98.9 82 12 116/50 96 Room Air 08/19 2020 99.8 89 20 116/56 96 Room Air 08/19 1735 97.5 105 22 124/70 95 Room Air Room Air 08/19 1629 96.0 79 24 126/73 95 Room Air 08/19 1443 97.0 80 18 124/58 100 Room Air 08/19 1343 97.7 08/19 1325 95.6 76 20 107/52 100 Nasal 2.0L Cannula 08/19 1247 100 Nasal 2.0L Cannula 08/19 1229 95.1 08/19 1209 94.1 69 20 116/59 100 Nasal 2.0L Cannula 08/19 1155 93.7 94 22 181/84 99 Room Air Room Air Intake & Output 08/20 1600 08/20 0800 08/20 0000 Intake Total 860 Output Total 600 Balance 860 -600 Intake, IV 620 Intake, Oral 240 Output, Urine 600 Patient 120 lb Weight Physical Exam General Appearance: No Acute Distress Other Physical Findings: General Exam: AAOx3, No acute distress, Skin: No rashes, no breakdown HEENT: PERRLA, EOMI Neck: Supple, No JVD No cervical lymphadenopathy CVS: Reg Rate, Normal S1,S2, No MGR Resp: Normal air entry, no ronchi/rales Abdomen: Soft, No tenderness, Normal Bowel Sounds Neuro: Normal Speech, Strength 5/5 b/l x 4 extremities, Sensation intact, CN III -XII NL, Reflexes 2+ Extremities: No cyanosis, pedal edema Current Medications: Current Medications Sig/Ladonna Start time Last Medication Dose Route Stop Time Status Admin Acetaminophen 500 MG Q6P PRN 08/19 2044 AC PO Aspirin Buffered 81 MG DAILY 08/20 1000 AC 08/20 PO 1106 Atorvastatin Calcium 80 MG 1700 08/20 1700 AC PO Clopidogrel Bisulfate 75 MG DAILY 08/20 1000 AC 08/20 PO 1106 Heparin Sodium 5,000 UNIT Q8 08/19 2200 AC (Porcine) SC Insulin Aspart 0 TIDAC 08/20 0800 AC SC Insulin Detemir 7 UNITS QPM 08/19 2200 AC SC Magnesium Sulfate 1 GM Q2H 08/20 0230 DC 08/20 Dextrose/Water 100 ML IV 08/20 0629 0432 Metoclopramide HCl 0 .STK-MED ONE 08/19 1830 DC .ROUTE Metoclopramide HCl 10 MG ONCE ONE 08/19 1815 DC 08/19 IV 08/19 1816 1834 Metoprolol Tartrate 12.5 MG DAILY 08/20 1000 AC 08/20 PO 1106 Naloxone HCl 0.4 MG ONCE ONE 08/19 1230 DC 08/19 IV 08/19 1231 1231 Naloxone HCl 0 .STK-MED ONE 08/19 1159 DC .ROUTE Omeprazole 20 MG DAILY 08/20 1000 AC 08/20 PO 1105 Ondansetron HCl 0 .STK-MED ONE 08/19 1732 DC .ROUTE Ondansetron HCl 4 MG ONCE ONE 08/19 1730 DC 08/19 IV 08/19 1731 1740 Oxycodone/ 2 TAB Q6P PRN 08/19 2045 AC Acetaminophen PO Sodium Chloride 1,000 ML ONCE ONE 08/19 2145 DC 08/20 IV 08/20 1104 0124 Sodium Chloride 1,000 ML ONCE ONE 08/19 1730 DC 08/19 IV 08/20 0129 1740 Last 24 Hrs of Lab/Aldo Results Last 24 Hrs of Labs/Mics: Laboratory Tests 08/20/16 0700: Troponin I Cancelled 08/20/16 0700: Anion Gap 11, Estimated GFR 20 L, BUN/Creatinine Ratio 17.3, Magnesium 1.7, Troponin I 0.40 *H, CBC w Diff NO MAN DIFF REQ, RBC 2.90 L, MCV 91.5, MCH 30.6, RDW 13.7, MPV 9.0, Gran % 87.0 H, Lymphocytes % 7.0 L, Monocytes % 5.9, Eosinophils % 0, Basophils % 0.1, Absolute Granulocytes 16.8 H, Absolute Lymphocytes 1.4, Absolute Monocytes 1.1 H, Absolute Eosinophils 0, Absolute Basophils 0, PUBS MCHC 33.4 08/19/16 2210: Magnesium 1.3 L, Troponin I 0.42 *H, TSH 0.718, Free T4 1.32 08/19/16 1630: Urine Opiates Screen < 100.00, Methadone Screen < 40, Barbiturate Screen < 60, Ur Phencyclidine Scrn < 6.00, Amphetamines Screen < 100, U Benzodiazepines Scrn < 85, Urine Cocaine Screen < 50, Urine Cannabis Screen < 5.00, Urinalysis LIGHT H, Urine Color YEL, Urine Clarity CLEAR, Urine pH 6.0, Ur Specific [place] 1.020 , Urine Protein 100 H, Urine Ketones NEG, Urine Nitrite NEG, Urine Bilirubin NEG, Urine Urobilinogen 0.2, Ur Leukocyte Esterase NEG, Ur Microscopic SEDIMENT EXAMINED, Urine RBC 1-3, Urine WBC RARE, Ur Epithelial Cells RARE, Urine Bacteria RARE H, Granular Casts RARE H, Urine Hemoglobin SMALL H, Urine Glucose NEG 08/19/16 1600: Anion Gap 13, Estimated GFR 20 L, BUN/Creatinine Ratio 17.7, Troponin I 0.09 08/19/16 1156: Anion Gap 17 H, Estimated GFR 20 L, BUN/Creatinine Ratio 16.8, Glucose 127 H, Calcium 7.2 L, Total Bilirubin 0.4, AST 20, ALT 36, Alkaline Phosphatase 124, Troponin I < 0.01, Total Protein 6.4, Albumin 3.7, Globulin 2.7, Albumin/ Globulin Ratio 1.4, CBC w Diff MAN DIFF ORDERED, RBC 3.62 L, MCV 91.3, MCH 30.3 , RDW 13.8, MPV 8.1, Gran % 71.8, Lymphocytes % 20.6, Monocytes % 6.1, Eosinophils % 1.0, Basophils % 0.5, Absolute Granulocytes 12.5 H, Absolute Lymphocytes 3.6 H, Absolute Monocytes 1.1 H, Absolute Eosinophils 0.2, Absolute Basophils 0.1, Platelet Estimate ADEQUATE, Normocytic RBCs VERIFIED, Normochromic RBCs VERIFIED, Poikilocytosis RARE, PUBS MCHC 33.2 Assessment/Plan Assessment: Mr. Bernard is a 76-year-old man with a past history of CHF, chronic kidney disease, coronary artery disease status post stent (type unclear), diabetes is being evaluated for unresponsiveness. As per the history, he choked on food when he had difficulty breathing and became unresponsive. At the time of admission, temperature 97.5, pulse rate 79, respiration 24, blood pressure 126/78, 95% on room air. Lab findings indicated to be 17.4, hemoglobin 11.0 (baseline 9.0), MCV 91.3, platelets 228. Sodium 147, chloride 118 ( elevated), bicarbonate 15 (low likely from C daily), BUN 53, serum creatinine 3.0. Magnesium 1.3, serial cardiac enzymes 0.09, 0.42, 0.40. Vitamin D 7.2 ( low), TSH 0.718, free T4 1 0.32. Radiological findings-CT head was negative for any acute changes. Chest x-ray was unremarkable. EKG revealed first-degree heart block. Last echocardiogram was done in 2013. Differential diagnosis: #1 syncope #2 TIA/CVA Below is the problem list and plan: #1 syncope-likely due to choking. No arrhythmias were noted in the last 24 hours. Orthostatics positive BP lying 170/60, standing 120/60. Continue fluids. Echocardiogram-pending. Cardiology has been consulted for advice. #2 electrolyte abnormalities-likely due to chronic kidney disease. Elevated phosphate, low calcium, low magnesium, low bicarbonate. #3 elevated troponins-with no EKG changes. Cardiology consult has been obtained. Persantine stress test in the a.m. Patient been made nothing by mouth. #4 diabetes-continues to have elevated blood glucose. Have not resumed long- acting yet. Increased of short-acting insulin to medium. Check HbA1c. #5 DVT prophylaxis-subcutaneous heparin #6 elevated leukocytes-aspiration pneumonia/pneumonitis and the differential. Could also be reactive. Currently watch off antibiotics. Urinalysis did not reveal any leukocyte esterase/nitrites positivity. 7 chronic kidney disease-serum creatinine 3.0. Baseline 2.5. At this time continue to monitor. Problem List: 1. Leukocytosis 2. Renal insufficiency 3. Diabetes mellitus 4. Hyperlipidemia Pain Ratin Pain Location: Back Pain Goal: Pain 4 or less Pain Plan: Oxycodone Tylenol Tomorrow's Labs & Rationales: C BC-to monitor for leukocytosis BEP to monitor serum creatinine.
[2016-08-20 12:00] VITALS: BP 120/60
--- NOTE | 2016-08-20 14:49 | ECHOCARDIOGRAM REPORT ---
KIM PERALES Age: 76 : 1940 Gender: M Exam Date: 08/20/2016 10:57 Exam Location: 1 [address] Ht (in): 65 Wt (lb): 120 BSA: 1.58 BP: 116 / 50 Ordering Physician: Kodi Adkins MD Referring Physician: KODI ADKINS MD Technologist: Elaina Vora Room Number: [id number] Indications: PRESYNCOPE/SYNCOPE Rhythm: Sinus Technical Quality: Very technically difficult study FINDINGS Left Ventricle Normal size left ventricle. Normal left ventricular ejection fraction visually estimated at >60%. No obvious regional wall motion abnormalities. Mild concentric left ventricular hypertrophy. Right Ventricle Normal right ventricular size and function. Right Atrium Normal right atrial size. Left Atrium Normal left atrial size. Mitral Valve Mitral annular calcification. Mitral valve thickened. Trace mitral regurgitation. Aortic Valve Diffuse thickening (sclerosis) of the aortic valve cusps without reduced excursion. No aortic stenosis. No aortic regurgitation. Tricuspid Valve Tricuspid valve not well visualized, grossly normal. Trace tricuspid regurgitation. No evidence of pulmonary hypertension. Pulmonic Valve Pulmonic valve not well visualized, grossly normal. Trace pulmonic regurgitation. Pericardium No pericardial effusion. Great Vessels Normal size aortic root. CONCLUSIONS Normal size left ventricle. Normal left ventricular ejection fraction visually estimated at > 60%. Mild concentric left ventricular hypertrophy. Trace mitral regurgitation. Trace tricuspid regurgitation. Trace pulmonic regurgitation. Rubio Cazares M.D. (Electronically Signed) Final Date: 20 August 2016 14:48 MEASUREMENTS (Male / Female) Normal Values 2D ECHO LV Diastolic Diameter PLAX 4.2 cm 4.2 - 5.9 / 3.9 - 5.3 cm LV Systolic Diameter PLAX 2.9 cm 2.1 - 4.0 cm LV Fractional Shortening PLAX 31.0 % 25 - 46 % LV Ejection Fraction 2D Teich 59.0 % IVS Diastolic Thickness 1.3 cm LVPW Diastolic Thickness 1.3 cm LV Relative Wall Thickness 0.6 RV Internal Dim ED PLAX 3.7 cm 1.9 - 3.8 cm LVOT Diameter 2.2 cm Aortic Root Diameter 2.7 cm LA Systolic Diameter LX 3.5 cm 3.0 - 4.0 / 2.7 - 3.8 cm LA Volume 58.0 cm 18 - 58 / 22 - 52 cm Ascending Aorta Diameter 2.6 cm DOPPLER AV Peak Velocity 142.0 cm/s AV Peak Gradient 8.1 mmHg AV Mean Velocity 97.9 cm/s AV Mean Gradient 4.0 mmHg AV Velocity Time Integral 33.4 cm LVOT Peak Velocity 54.9 cm/s LVOT Peak Gradient 1.2 mmHg LVOT Mean Velocity 41.2 cm/s LVOT Mean Gradient 1.0 mmHg LVOT Velocity Time Integral 8.9 cm LVOT Stroke Volume 34.0 cm AV Area Cont Eq vti 1.0 cm AV Area Cont Eq pk 1.5 cm MV Peak Velocity 114.0 cm/s MV Peak Gradient 5.2 mmHg MV Mean Velocity 61.0 cm/s MV Mean Gradient 2.0 mmHg Mitral E Point Velocity 76.5 cm/s Mitral A Point Velocity 102.0 cm/s Mitral E to A Ratio 0.8 MV PHT Velocity 79.5 cm/s MV Deceleration O'Brien 393.0 cm/s MV Pressure Half Time 60.7 ms MV Area PHT 3.6 cm MV Deceleration Time 194.0 ms TR Peak Velocity 167.0 cm/s TR Peak Gradient 11.2 mmHg Right Atrial Pressure 5.0 mmHg Pulmonary Artery Systolic Pressu 16.2 mmHg Right Ventricular Systolic Press 16.2 mmHg PV Peak Velocity 93.7 cm/s PV Peak Gradient 3.5 mmHg PV Mean Velocity 69.9 cm/s PV Mean Gradient 2.0 mmHg PV Velocity Time Integral 23.6 cm LV E' Lateral Velocity 6.7 cm/s Mitral E to LV E' Lateral Ratio 11.4 LV E' Septal Velocity 4.6 cm/s Mitral E to LV E' Septal Ratio 16.7
--- NOTE | 2016-08-20 15:27 | PN- Att Addend ---
Attending MD Review Statement Attending Statement Attending MD Statement: examined this patient, discuss w/resident/PA/STRIP DEBURRER, agreed w/resident/PA/STRIP DEBURRER, discussed with family, reviewed EMR data (avail), discussed w/ nursing, discussed w/case mgmt Attending Assessment/Plan: Laboratory Tests 08/20/16 0700: Troponin I Cancelled 08/20/16 0700: Anion Gap 11, Estimated GFR 20 L, BUN/Creatinine Ratio 17.3, Hemoglobin A1c Pending, Magnesium 1.7, Troponin I 0.40 *H, 25-OH Vitamin D Total 7.2 L, CBC w Diff NO MAN DIFF REQ, RBC 2.90 L, MCV 91.5, MCH 30.6, RDW 13.7, MPV 9.0, Gran % 87.0 H, Lymphocytes % 7.0 L, Monocytes % 5.9, Eosinophils % 0, Basophils % 0.1 , Absolute Granulocytes 16.8 H, Absolute Lymphocytes 1.4, Absolute Monocytes 1.1 H, Absolute Eosinophils 0, Absolute Basophils 0, PUBS MCHC 33.4 08/19/16 2210: Magnesium 1.3 L, Troponin I 0.42 *H, TSH 0.718, Free T4 1.32 08/19/16 1630: Urine Opiates Screen < 100.00, Methadone Screen < 40, Barbiturate Screen < 60, Ur Phencyclidine Scrn < 6.00, Amphetamines Screen < 100, U Benzodiazepines Scrn < 85, Urine Cocaine Screen < 50, Urine Cannabis Screen < 5.00, Urinalysis LIGHT H, Urine Color YEL, Urine Clarity CLEAR, Urine pH 6.0, Ur Specific [place] 1.020 , Urine Protein 100 H, Urine Ketones NEG, Urine Nitrite NEG, Urine Bilirubin NEG, Urine Urobilinogen 0.2, Ur Leukocyte Esterase NEG, Ur Microscopic SEDIMENT EXAMINED, Urine RBC 1-3, Urine WBC RARE, Ur Epithelial Cells RARE, Urine Bacteria RARE H, Granular Casts RARE H, Urine Hemoglobin SMALL H, Urine Glucose NEG 08/19/16 1600: Anion Gap 13, Estimated GFR 20 L, BUN/Creatinine Ratio 17.7, Troponin I 0.09 Vital Signs Date Time Temp Pulse Resp B/P Pulse O2 O2 Flow FiO2 Ox Delivery Rate 08/20 1200 72 120/60 08/20 1106 98.2 90 19 120/70 08/20 0753 98.2 90 19 120/70 96 /05 0000 96 Room Air 08/19 2243 98.9 82 12 116/50 96 Room Air 08/20 2019 99.8 89 20 116/56 96 Room Air 08/19 1735 97.5 105 22 124/70 95 Room Air Room Air 08/19 1629 96.0 79 24 126/73 95 Room Air Patient seen and examined at bedside. Discussed with patient's family and patient the care plan. 76-year-old male resented with chief complaint of choking on food and becoming unresponsive for about 2 minutes post the episode. Patient does have history of underlying coronary artery disease status post stenting and CHF as well as CK D stage IV. Patient emergency room was found to have leukocytosis with white count of 17.4 and his first set of troponin was 0.09. His repeat troponin has gone up to 0.42 and the third troponin was 0.40. Given his previous history of coronary artery disease we will repeat an echocardiogram and do stress test tomorrow. Myocardial infarction type II-likely secondary to demand ischemia but in patient with underlying coronary artery disease we will do a stress test and repeat an echocardiogram. Leukocytosis-unclear etiology may be related to stress or from aspiration pneumonitis. Patient is staying afebrile but we'll continue to monitor his vitals closely. Vitamin D deficiency-his vitamin D level is 7.2 we will start him on high dose vitamin D 50,000 units every weekly for 8 weeks. Hypocalcemia-we will start him on calcium supplementation with 500 twice a day of calcium carbonate. Hyperphosphatemia-Will switch his diet to low phosphorus renal diet. Uncontrolled diabetes mellitus-Will adjust his insulin dose accordingly. We'll continue to monitor his sugars closely. Patient has been placed in observation status. Plan discharge tomorrow if stress test negative.
[2016-08-20 15:30] VITALS: BP 122/64
[2016-08-21 00:07] VITALS: BP 132/60
--- NOTE | 2016-08-21 08:20 | PN- Housestaff ---
Subjective Follow-up For: Unresponsiveness Complaints: no complaints Tele-Events Since Last Visit: Normal sinus rhythm, heart rate 61-98, no overnight events were noted. Subjective: Patient was comfortable. Did not have any complaints. He had been kept nothing by mouth for a possible stress test in the a.m. White as were stable overnight. He remained afebrile. No chest pain, shortness of breath, lightheadedness, weakness in upper or lower extremities. Review of Systems Constitutional: Reports: see HPI. Objective Last 24 Hrs of Vital Signs/I&O Vital Signs Date Time Temp Pulse Resp B/P Pulse O2 O2 Flow FiO2 Ox Delivery Rate 08/21 0007 99.4 88 20 132/60 95 04/ 0000 96 Room Air / 1530 98.6 73 20 122/64 95 Room Air 04/ 1200 72 120/60 04/05 1106 98.2 90 19 120/70 Intake & Output 08/21 1600 08/21 0800 04/ 0000 Intake Total 240 Output Total 1060 450 Balance -1060 -210 Intake, Oral 240 Output, Urine 1060 450 Patient 119 lb Weight Physical Exam General Appearance: No Acute Distress Other Physical Findings: General Exam: AAOx3, No acute distress, slurred speech Skin: No rashes, no breakdown HEENT: PERRLA, EOMI Neck: Supple, No JVD No cervical lymphadenopathy CVS: Reg Rate, Normal S1,S2, No MGR Resp: Normal air entry, no ronchi/rales Abdomen: Soft, No tenderness, Normal Bowel Sounds Neuro: Normal Speech, Strength 5/5 b/l x 4 extremities, Sensation intact, CN III -XII NL, Reflexes 2+ Extremities: No cyanosis, pedal edema Current Medications: Current Medications Sig/Ladonna Start time Last Medication Dose Route Stop Time Status Admin Acetaminophen 500 MG Q6P PRN 08/19 2045 AC PO Aspirin Buffered 81 MG DAILY 08/20 1000 AC 08/20 PO 1106 Atorvastatin Calcium 80 MG 1700 08/20 1700 AC 08/20 PO 1650 Calcium Carbonate 500 MG DAILY 08/21 1000 AC PO Clopidogrel Bisulfate 75 MG DAILY 08/20 1000 AC 08/20 PO 1106 Dipyridamole 30 MG ONE ONE 08/21 1200 AC Dextrose/Water 34 ML IV 08/21 1559 Ergocalciferol 50,000 IU QWED 09/03 0700 AC PO Heparin Sodium 5,000 UNIT Q8 08/19 2200 AC 08/21 (Porcine) DE 0627 Insulin Aspart 0 TIDAC 08/20 1700 DC 08/20 SC 08/21 0000 1650 Insulin Aspart 0 TIDAC 08/20 0800 DC 08/20 DE 1238 Insulin Detemir 7 UNITS QPM 08/19 2200 AC 08/20 SC 2143 Insulin Human Regular 0 Q6 08/21 0600 AC 08/21 DE 0649 Metoprolol Tartrate 12.5 MG DAILY 08/20 1000 DC 08/20 PO 1106 Omeprazole 20 MG DAILY 08/20 1000 AC 08/20 PO 1105 Oxycodone/ 2 TAB Q6P PRN 08/19 2045 AC Acetaminophen PO Last 24 Hrs of Lab/Aldo Results Last 24 Hrs of Labs/Mics: Laboratory Tests 08/21/16 0635: Anion Gap 10, Estimated GFR 21 L, BUN/Creatinine Ratio 17.6, CBC w Diff NO MAN DIFF REQ, RBC 2.97 L, MCV 91.3, MCH 30.1, RDW 13.7, MPV 9.0, Gran % 79.5 H, Lymphocytes % 12.7 L, Monocytes % 6.9, Eosinophils % 0.6, Basophils % 0.3, Absolute Granulocytes 10.5 H, Absolute Lymphocytes 1.7, Absolute Monocytes 0.9 H, Absolute Eosinophils 0.1, Absolute Basophils 0, PUBS MCHC 33.0 Assessment/Plan Assessment: Mr. Bernard is a 76-year-old man with a past history of CHF, chronic kidney disease, coronary artery disease status post stent (type unclear), diabetes is being evaluated for unresponsiveness. As per the history, he choked on food when he had difficulty breathing and became unresponsive. Labs in the last 24 hours-carotid Dopplers did not reveal any significant stenosis in the carotid arteries. Echo still pending. Differential diagnosis: #1 syncope #2 TIA/CVA Below is the problem list and plan: #1 syncope-likely due to choking. No arrhythmias were noted in the last 24 hours. Orthostatics positive BP lying 170/60, standing 120/60. . Check Orthostats again. Echocardiogram-pending. Cardiology has been consulted for advice. #2 electrolyte abnormalities-likely due to chronic kidney disease. Elevated phosphate, low calcium, low magnesium, low bicarbonate. #3 elevated troponins-with no EKG changes. Cardiology consult has been obtained. Persantine stress test in the a.m. Patient been made nothing by mouth. #4 diabetes-continues to have elevated blood glucose. Have not resumed long- acting yet. Increased of short-acting insulin to medium. HbA1c. Blood sugar levels 194, 99. Incidental increased to 401 yesterday. Unsure of the diet. No change in current insulin regimen at this time. #5 DVT prophylaxis-subcutaneous heparin #6 elevated leukocytes-aspiration pneumonia/pneumonitis and the differential. Could also be reactive. Currently watch off antibiotics. Urinalysis did not reveal any leukocyte esterase/nitrites positivity. Leukocytosis improving. 7 chronic kidney disease-serum creatinine 2.9. Baseline 2.5. At this time continue to monitor. Problem List: 1. Nausea and vomiting 2. Leukocytosis 3. Altered mental status Pain Ratin Pain Location: None Pain Goal: Pain 4 or less Pain Plan: Tylenol when necessary Tomorrow's Labs & Rationales: No labs necessary, patient to be discharged.
[2016-08-21 08:27] LABS: ABSOLUTE BASOPHIL COUNT 0 /CUMM (0.0-0.2); ABSOLUTE EOSINOPHIL COUNT 0.1 /CUMM (0.0-0.7); ABSOLUTE GRANULOCYTE CT 10.5 /CUMM (1.4-6.5); ABSOLUTE LYMPH COUNT 1.7 /CUMM (1.2-3.4); ABSOLUTE MONOCYTE COUNT 0.9 /CUMM (0.10-0.60); BASOPHIL % 0.3 % (0.0-2.0); EOSINOPHIL % 0.6 % (0-5); GRANULOCYTE % 79.5 % (42.2-75.2); HEMATOCRIT 27.1 % (42-52); MEAN CORPUSCULAR HGB 30.1 PG (27.0-31.0); MEAN CORPUSCULAR VOLUME 91.3 FL (80.0-94.0); PLATELET COUNT 170 /CUMM (130-400); RBC DISTRIBUTION WIDTH 13.7 % (11.5-14.5); RED BLOOD CELL CT 2.97 /CUMM (4.70-6.10); WHITE BLOOD CELL COUNT 13.2 /CUMM (4.8-10.8)
[2016-08-21 08:30] VITALS: BP 114/72
--- NOTE | 2016-08-21 13:02 | PN- Cardiology ---
Subjective Subjective: Stable with no recurrent symptoms Objective Vital Signs and I&Os Vital Signs Date Time Temp Pulse Resp B/P Pulse O2 O2 Flow FiO2 Ox Delivery Rate 08/21 0830 98.8 84 18 114/72 96 Room Air 08/21 0007 99.4 88 20 132/60 95 / 0000 96 Room Air / 1530 98.6 73 20 122/64 95 Room Air Intake & Output 08/21 1600 08/21 0800 08/21 0000 08/20 1600 08/20 0808/20 0000 Intake Total 240 780 860 Output Total 1060 450 375 600 Balance -1060 -210 405 860 -600 Intake, IV 300 620 Intake, Oral 240 480 240 Output, Urine 1060 450 375 600 Patient 119 lb 120 lb Weight Current Medications: Current Medications Sig/Ladonna Start time Last Medication Dose Route Stop Time Status Admin Acetaminophen 500 MG Q6P PRN 08/19 204 AC PO Aspirin Buffered 81 MG DAILY 08/20 1000 AC 08/20 PO 1106 Atorvastatin Calcium 80 MG 1700 08/20 1700 AC 08/20 PO 1650 Calcium Carbonate 500 MG DAILY 08/21 1000 AC PO Clopidogrel Bisulfate 75 MG DAILY 08/20 1000 AC 08/20 PO 1106 Dipyridamole 30 MG ONE ONE 08/21 1200 AC Dextrose/Water 34 ML IV 08/21 1559 Ergocalciferol 50,000 IU QWED 09/03 0700 AC PO Heparin Sodium 5,000 UNIT Q8 08/19 2200 AC 08/21 (Porcine) [place] 0627 Insulin Aspart 0 TIDAC 08/20 1700 DC 08/20 IL 08/21 0000 1650 Insulin Aspart 0 TIDAC 08/20 0800 NE 08/20 IL 1238 Insulin Detemir 7 UNITS QPM 08/19 2200 AC 08/20 [place] 2143 Insulin Human Regular 0 Q6 08/21 0600 08/21 [place] 0649 Metoprolol Tartrate 12.5 MG DAILY 08/20 1000 DC 08/20 PO 1106 Omeprazole 20 MG DAILY 08/20 1000 AC 08/20 PO 1105 Oxycodone/ 2 TAB Q6P PRN 08/19 204 AC Acetaminophen PO Results Last 48 Hrs of Labs/Mics: Laboratory Tests 08/21/16 0635: Anion Gap 10, Estimated GFR 21 L, BUN/Creatinine Ratio 17.6, CBC w Diff NO MAN DIFF REQ, RBC 2.97 L, MCV 91.3, MCH 30.1, RDW 13.7, MPV 9.0, Gran % 79.5 H, Lymphocytes % 12.7 L, Monocytes % 6.9, Eosinophils % 0.6, Basophils % 0.3, Absolute Granulocytes 10.5 H, Absolute Lymphocytes 1.7, Absolute Monocytes 0.9 H, Absolute Eosinophils 0.1, Absolute Basophils 0, PUBS MCHC 33.0 08/20/16 0700: Troponin I Cancelled 08/20/16 0700: Anion Gap 11, Estimated GFR 20 L, BUN/Creatinine Ratio 17.3, Hemoglobin A1c 8.1 H, Magnesium 1.7, Troponin I 0.40 *H, 25-OH Vitamin D Total 7.2 L, CBC w Diff NO MAN DIFF REQ, RBC 2.90 L, MCV 91.5, MCH 30.6, RDW 13.7, MPV 9.0, Gran % 87.0 H, Lymphocytes % 7.0 L, Monocytes % 5.9, Eosinophils % 0, Basophils % 0.1, Absolute Granulocytes 16.8 H, Absolute Lymphocytes 1.4, Absolute Monocytes 1.1 H, Absolute Eosinophils 0, Absolute Basophils 0, PUBS MCHC 33.4 08/19/16 2210: Magnesium 1.3 L, Troponin I 0.42 *H, TSH 0.718, Free T4 1.32 08/19/16 1630: Urine Opiates Screen < 100.00, Methadone Screen < 40, Barbiturate Screen < 60, Ur Phencyclidine Scrn < 6.00, Amphetamines Screen < 100, U Benzodiazepines Scrn < 85, Urine Cocaine Screen < 50, Urine Cannabis Screen < 5.00, Urinalysis LIGHT H, Urine Color YEL, Urine Clarity CLEAR, Urine pH 6.0, Ur Specific [place] 1.020 , Urine Protein 100 H, Urine Ketones NEG, Urine Nitrite NEG, Urine Bilirubin NEG, Urine Urobilinogen 0.2, Ur Leukocyte Esterase NEG, Ur Microscopic SEDIMENT EXAMINED, Urine RBC 1-3, Urine WBC RARE, Ur Epithelial Cells RARE, Urine Bacteria RARE H, Granular Casts RARE H, Urine Hemoglobin SMALL H, Urine Glucose NEG 08/19/16 1600: Anion Gap 13, Estimated GFR 20 L, BUN/Creatinine Ratio 17.7, Troponin I 0.09 Assessment/Plan Assessment/Plan Assessment- 1. Elevated troponin 2. Acute on chronic HFpEF 3. GABY on CKD 4. Acute anemia, multifactorial- acute blood loss vs 2/2 renal insufficiency vs iron deficiency 5. PAF 6. HTN 7. Goutry arthritis of right knee, flare seems to have resolved Recommendations; - COntinue current regimen - Await results of PTN MIBI today. - If no evidence of ischemia on PTN, discharge for outpatient followup with Dr. Cazares. Continue telemetry? Yes
[2016-08-21] MEDS ORDERED: VITAMIN D250000 UNIT PO (13:52)
[2016-08-21] MEDS ORDERED: CALCIUM CARBON200 MG PO (13:53)
--- NOTE | 2016-08-21 13:58 | Patient Discharge Instructions ---
Discharge Instructions General Discharge Information You were seen/treated for: - Unconsciousness - Increased cardiac enzymes Special Instructions: - Please see your PCP within one week of discharge. - Please follow up with your janitorial services supervisor within one week of discharge. - Please follow up with your kidney doctor withinin one week of discharge. Acute Coronary Syndrome Inclusion Criteria At DC or during hospital stay patient has or had the following: ACS DIAGNOSIS No Discharge Core Measures Meds if any: Prescribed or Continued at Discharge Meds if any: NOT Prescribed or Continued at Discharge Congestive Heart Failure Inclusion Criteria At DC or during hospital stay patient has or had the following: CHF DIAGNOSIS No Discharge Core Measures Meds if any: Prescribed or Continued at Discharge Meds if any: NOT Prescribed or Continued at Discharge Cerebrovascular accident Inclusion Criteria At DC or during hospital stay patient has or had the following: CVA/TIA Diagnosis No Discharge Core Measures Meds if any: Prescribed or Continued at Discharge Meds if any: NOT Prescribed or Continued at Discharge Venous thromboembolism Inclusion Criteria VTE Diagnosis No VTE Type NONE VTE Confirmed by (Test) NONE Discharge Core Measures - Per Current guidelines, there needs to be overlap - treatment for the first 5 days of Warfarin therapy. - If discharged on Warfarin prior to 5 days of - overlap therapy, the patient will need to be - assessed for post discharge needs including - *Post discharge parental anticoagulation - *Warfarin and/or parental anticoagulation education - *Follow up date to check INR post discharge At least 5 days overlap therapy as Inpatient No Meds if any: Prescribed or Continued at Discharge Note: Overlap Therapy is Warfarin and Anticoagulant Meds if any: NOT Prescribed or Continued at Discharge
--- NOTE | 2016-08-21 14:45 | PN- Att Addend ---
Attending MD Review Statement Attending Statement Attending MD Statement: examined this patient, discuss w/resident/PA/HOSTING ENGINEER, agreed w/resident/PA/HOSTING ENGINEER, reviewed EMR data (avail), discussed w/nursing Attending Assessment/Plan: Laboratory Tests 08/21/16 0635: Anion Gap 10, Estimated GFR 21 L, BUN/Creatinine Ratio 17.6, CBC w Diff NO MAN DIFF REQ, RBC 2.97 L, MCV 91.3, MCH 30.1, RDW 13.7, MPV 9.0, Gran % 79.5 H, Lymphocytes % 12.7 L, Monocytes % 6.9, Eosinophils % 0.6, Basophils % 0.3, Absolute Granulocytes 10.5 H, Absolute Lymphocytes 1.7, Absolute Monocytes 0.9 H, Absolute Eosinophils 0.1, Absolute Basophils 0, PUBS MCHC 33.0 Vital Signs Date Time Temp Pulse Resp B/P Pulse O2 O2 Flow FiO2 Ox Delivery Rate 08/21 0830 98.8 84 18 114/72 96 Room Air 08/21 0007 99.4 88 20 132/60 95 04 0000 96 Room Air 08/20 1530 98.6 73 20 122/64 95 Room Air Patient seen and examined at bedside. Discussed with patient the care plan. Patient is going to go for stress test today. We will follow-up on the results and make further plan based on the results. Echo done was unremarkable. Leukocytosis-likely reactive and resolving. White count down to 13.2. Patient staying afebrile. Chronic kidney disease. Creatinine is stable at 2.9. We'll continue to monitor closely. If stress tests is unremarkable we will discharge the patient home.
--- NOTE | 2016-08-21 15:49 | IV DIPYRIDAMOLE NUCLEAR STRESS ---
Clinical Diagnosis: Positive troponins and history of coronary artery disease Detail Assembler: Marylin Syed Date of Service: 08/21/16 IV DIPYRIDAMOLE INFUSED: 30 mg IV AMINOPHYLLINE INFUSED: 125 mg PATIENT WEIGHT: 120 lbs INTERPRETATION: The patient's baseline EKG showed normal sinus rhythm at 80 BPM. Baseline B/P 180/70. The patient received 30 mg of dipyridamole infused intravenously over a 4 minute period. TC-99M or Myoview was injected after dipyridamole infusion. The patient tolerated the infusion well. There were no EKG changes seen following pharmacologic infusion. Arrhythmias: none IMPRESSION: The test was supervised by the interpreting Nurse'S Assistant, who was in attendance during the entire test. No EKG evidence of stress induced myocardial ischemia. See separately dictated Nuclear Report.
[2016-08-21 16:54] VITALS: BP 130/62
--- NOTE | 2016-08-21 18:22 | NUCLEAR MEDICINE REPORT ---
PERSANTINE STRESS AND RESTING SPECT MYOCARDIAL PERFUSION IMAGING STUDY WITH GATED SPECT IMAGES: CLINICAL INDICATION: Syncope. PROCEDURE: Regional myocardial perfusion was assessed using a 1 day protocol. Stress images were obtained on 08/21/2016 following the intravenous administration of 18.9 mCi Tc 99m Myoview. Stress consisted of 30 mg Persantine given intravenously. Following the sestamibi injection, 125 mg aminophylline was given intravenously. Rest images were obtained 08/21/2016 following the intravenous administration of 30.7 mCi Technetium 99m Myoview. Single photon emission tomographic (SPECT) images were obtained. SPECT images were acquired in a 64 x 64 matrix of 64 projections over 180 degrees. These were reconstructed into standard short axis, horizontal and vertical long axis cardiac projections. FINDINGS: The post stress images show the left ventricular chamber to be normal in size. There is a moderately sized region of markedly diminished and almost absent activity that involves the mid and basal segments of the inferior wall and there is moderately decreased activity present in the adjacent apical inferior wall. Activity in the other mobley appears normal. The rest images are not significantly changed from the post stress images. The images were obtained using a gated SPECT technique, which permits visualization of wall motion and calculation of the left ventricular ejection fraction. Left ventricular chamber is normal in size. There is mild hypokinesis in the basal inferior wall. The other mobley move normally. The calculated left ventricular ejection fraction is 45% on the stress study. No previous study is available for comparison. IMPRESSION: A moderately sized fixed perfusion abnormality is present involving the mid and basal segments of the inferior wall and less severely the apical inferior wall. No definite regions of reversible ischemia are noted. There is mild hypokinesis in the basal inferior wall, but the other mobley move normally. Left ventricular ejection fraction is minimally depressed.
--- NOTE | 2016-08-21 22:00 | Discharge Summary ---
Hospital Course Allergies: Coded Allergies: NO KNOWN ALLERGIES (09/27/15) Discharge Instructions Medications at Discharge Discharge Medications: Continue taking these medications: Omeprazole (Omeprazole) 20 MG CAPSULE.DR 1 Capsule ORAL DAILY Qty = 90 Comments: Last Taken:08/21/16 Time:2:30 pm Lisinopril (Lisinopril) 5 MG TABLET 1 Tablet ORAL DAILY Qty = 30 Comments: Last Taken:not given in the hospital Time: Atorvastatin Calcium (Atorvastatin Calcium) 80 MG TABLET 1 Tablet ORAL DAILY Qty = 90 Comments: Last Taken:08/21/16 Time:5:30 pm Furosemide (Furosemide) 20 MG TABLET 1 Tablet ORAL DAILY Qty = 90 Comments: Last Taken:not given in the hospital Time: Clopidogrel Bisulfate (Clopidogrel) 75 MG TABLET 1 Tablet ORAL DAILY Qty = 90 Comments: Last Taken:08/21/16 Time:2:30 pm Aspirin (Ecotrin*) 81 MG TABLET. 1 Tablet ORAL DAILY Comments: Last Taken:08/21/16 Time: 2pm Metoprolol Succinate (Metoprolol Succinate) 25 MG TAB 0.5 Tablet ORAL DAILY Qty = 45 Comments: Last Taken:not given in the hospital Time: Insulin Aspart (Novolog) 100 UNIT/ML VIAL 7-8 Units Inject into fatty tissue TWICE DAILY Comments: Last Taken:08/21/16 Time:5:30 pm Insulin Glargine,Hum.rec.anlog (Lantus Solostar) 100 UNIT/ML (3 ML) INSULN.PEN 7-8 Unit Inject into fatty tissue Every night Comments: Last Taken:not given in the hospital Time: Start taking the following new medications: Ergocalciferol (Vitamin D2) (Vitamin D2) 50,000 UNIT CAPSULE 50,000 International Unit ORAL EVERY THURSDAY Qty = 7 No Refills Comments: Last Taken:not given in the hospital Time: Calcium Carbonate (Calcium Carbonate) 200 MG CALCIUM (500 MG) TAB.CHEW 500 Milligram ORAL DAILY Qty = 30 No Refills Comments: Last Taken:not given in the hospital Time:
[2016-11-06] MEDS ORDERED: ATORVASTATIN CA40 M1 PO (18:31)
[2016-11-06] MEDS ORDERED: CALCIUM600 M3 PO (18:33)
[2016-11-06] MEDS ORDERED: FERROUS SULFAT325 M3 PO (18:33)
[2016-11-06] MEDS ORDERED: OXYCODONE HCL5 M2 PO (18:41)
== END 2016-08-21 20:10 ==
LOC: ENRESERVTM → ENRESERVDT → ERH 11:52 → ERHI 18:06 → 1NO 18:06
PROVIDERS: Emergency Medicine; Internal Medicine Endocrinology, Diabetes & Metabolism; Internal Medicine Hematology & Oncology; ADMIT Internal Medicine
DX: R55 Syncope and collapse (principal); I10 Essential (primary) hypertension; E78.5 Hyperlipidemia, unspecified; E11.9 Type 2 diabetes mellitus without complications; N18.4 Chronic kidney disease, stage 4 (severe); Z86.12 Personal history of poliomyelitis; I50.9 Heart failure, unspecified; I25.10 Atherosclerotic heart disease of native coronary artery without angina pectoris; N17.9 Acute kidney failure, unspecified; I24.8 Other forms of acute ischemic heart disease; E55.9 Vitamin D deficiency, unspecified; R09.89 Other specified symptoms and signs involving the circulatory and respiratory systems
CPT/HCPCS: 36415; 78452; 80307; 81001; 82436; 92610-GN; 93005; 93010; 93016; 93017; 93306; 96372; 96374; 96375; 97116-GP; 97162-GP; 99291; A9502; G0378; G8996-GN; G8997-GN; G8998-GN; J1245; J1644; J1815; J2310; J2405; J2765

== ENCOUNTER 2017-07-07 16:50 | Inpatient (IN) | payer OTHER ==
[~2017-07-07] VITALS: Ht 162.6 cm; Wt 56.7 kg
[~2017-07-07 16:50] MED LIST changes: +ASPIRIN EC81 M1 PO; +ATORVASTATIN CA80 M1 PO; +CALCITRIOL0.25 MC1 PO; +CALCIUM CARBON200 MG PO; +CALCIUM600 M3 PO; +CLOPIDOGREL75 M1 PO; +FERROUS SULFAT325 M3 PO; +FUROSEMIDE20 M1 PO; +LISINOPRIL5 M1 PO; +METOPROLOL SUCC25 M1 PO; +NOVOLOG100 UNIT/2 SC; +OMEPRAZOLE20 M2 PO; +OXYCODONE HCL5 M2 PO; +VITAMIN D250000 UNIT PO
[2017-07-07 17:30] LABS: ABSOLUTE BASOPHIL COUNT 0.1 /CUMM (0.0-0.2); ABSOLUTE EOSINOPHIL COUNT 0.2 /CUMM (0.0-0.7); ABSOLUTE LYMPH COUNT 1.2 /CUMM (1.2-3.4); ABSOLUTE MONOCYTE COUNT 0.8 /CUMM (0.10-0.60); EOSINOPHIL % 1.8 % (0-5); GRANULOCYTE % 81.2 % (42.2-75.2); HEMATOCRIT 27.6 % (42-52); MEAN CORPUSCULAR HGB 30.2 PG (27.0-31.0); MEAN CORPUSCULAR HGB CONC 32.8 G/DL (33.0-37.0); MEAN CORPUSCULAR VOLUME 92.1 FL (80.0-94.0); MEAN PLATELET VOLUME 8.7 FL (7.4-10.4); PLATELET COUNT 202 /CUMM (130-400); RBC DISTRIBUTION WIDTH 14.2 % (11.5-14.5); RED BLOOD CELL CT 2.99 /CUMM (4.70-6.10); WHITE BLOOD CELL COUNT 12.3 /CUMM (4.8-10.8)
--- NOTE | 2017-07-07 20:26 | ED GENERAL ADULT ---
History of Present Illness General Chief Complaint: General Adult Stated Complaint: PT WAS SENT IN BY FOR HIGH POTASSIUM Source: patient, family, old records Exam Limitations: no limitations Vital Signs & Intake/Output Vital Signs & Intake/Output Vital Signs Date Time Temp Pulse Resp B/P B/P Pulse O2 O2 Flow FiO2 Mean Ox Delivery Rate 07/08 0000 98.5 73 16 145/66 98 Room Air 07/07 2305 98.5 77 18 141/64 98 Room Air 07/07 1708 98.0 78 22 190/118 97 ED Intake and Output 07/08 0000 07/07 1200 Intake Total 0 Output Total Balance 0 Intake, Oral 0 Patient 124 lb Weight Allergies Coded Allergies: No Known Allergies (04/01/17) Triage Note: PER PT CALLED BY PMD FOR HIGH POTASSIUM PT WITHOUT CO ALSO PER "EKG ABNORMAL AT [facility] Triage Nurses Notes Reviewed? yes Onset: Abrupt Duration: day(s): (1), constant Timing: recent history Injury Environment: home Severity: moderate Severity Numbers: 10 No Modifying Factors: none Associated Symptoms: denies HPI: 77 year old male past medical history of hypertension, coronary artery disease, cardiomegaly, diabetes mellitus, hyperlipidemia, systolic congestive heart failure, and chronic kidney disease presents sent in by his boat rental clerk Oh Del Cid MD for evaluation of the patient blood work today that showed an elevated potassium. Patient presents without any complaints is been no nausea vomiting diarrhea. No chest pain shortness of breath. He is not currently on dialysis. No modifying factors no leg swelling no fever no chills (Bertha BROWN,Navid) Reconcile Medications Aspirin (Ecotrin*) 81 MG TABLET.DR 1 TAB PO DAILY HEART/BLOOD (Reported) Atorvastatin Calcium 80 MG TABLET 1 TAB PO QPM CHOLESTEROL (Reported) Calcitriol 0.25 MCG CAPSULE 1 CAP PO DAILY VITAMIN SUPPORT (Reported) Clopidogrel Bisulfate (Clopidogrel) 75 MG TABLET 1 TAB PO DAILY BLOOD THINNER (Reported) Ferrous Sulfate 325 MG (65 MG IRON) TABLET 1 TAB PO DAILY SUPPLEMENT ( Reported) Insulin Aspart (Novolog) 100 UNIT/ML VIAL 8-10 UNITS SC BID PRN DM (Reported) Insulin Glargine,Hum.rec.anlog (Lantus Solostar) 100 UNIT/ML (3 ML) INSULN.PEN 6-10 UNIT SC QPM DM (Reported) Metoprolol Succinate 25 MG TAB 1 TAB PO DAILY HEART/BP (Reported) (Mario Gilbert DO) Past History Travel History Traveled to [place] past 21 day No Medical History Any Pertinent Medical History? 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 No (Navid El) Review of Systems Review of Systems Constitutional: Reports: see HPI. Comments Review of systems: See HPI, All other systems negative. Constitutional, no chills no fever, HEENT: no sore throat no congestion Cardiovascular: No chest pain Skin: no rashes, no change in skin Respiratory: No dyspnea no cough no sputum GI: No nausea no vomiting, no diarrhea : No dysuria No hematuria, no frequency Muscle skeletal: No joint pain, no back pain, no neck pain Neurologic: , no headache Heme/endocrine: No bruising Immunology: No lymphadenopathy (Navid El) Physical Exam Physical Exam General Appearance: well developed/nourished, alert, awake Comments: Well-developed well-nourished person in no acute distress HEENT: Normal EENT exam; PERRL, EOMI,. HEAD is atraumatic. moist mucous membranes. Neck: Supple, no lymphadenopathy, normal range of motion without pain or tenderness Back: Nontender, no CVA tenderness. Full range of motion Cardiovascular: Regular rate and rhythms no murmurs rub Respiratory: No respiratory distress. Patient speaking in full complete sentences. Breath sounds clear to auscultation bilaterally: NO W/R/R Abdomen: Soft, nontender nondistender Extremity: No edema, full range of motion of extremities Neuro: Alert oriented x3, motor sensory normal. There were no obvious focal neurologic abnormalities. Skin: No appreciable rash on exposed skin, skin is warm and dry. Psych: Mood and affect is normal, memory and judgment is normal. Core Measures ACS in differential dx? No CVA/TIA Diagnosis: No Sepsis Present: No Sepsis Focused Exam Completed? No (Bertha BROWN,Navid) Progress Differential Diagnoses I considered the following diagnoses in my evaluation of the patient: Hyperkalemia or joint abnormality acute on chronic kidney disease, ami Plan of Care: Orders Procedure Date/time Status Consistent Carbohydrate 2 07/08 B Active CBC WITHOUT DIFFERENTIAL 07/08 0600 Active BASIC ELECTROLYTES PLUS BUN&CR 07/08 0600 Active TROPONIN LEVEL 07/08 0300 Active BASIC ELECTROLYTES PLUS BUN&CR 07/08 0300 Active Code Status 07/08 0017 Active Lab Add-on Test 07/08 UNK Active THYROID STIMULATING HORMONE 07/07 2300 Active TROPONIN LEVEL 07/07 2300 Active TOTAL IRON BINDING CAPACITY 07/07 2300 Active FREE T4 07/07 2300 Active FERRITIN 07/07 2300 Active SERUM IRON 07/07 2300 Active EKG 07/07 2300 Active OXYGEN SETUP (GEN) 07/07 225 Active Pathway - chart 07/07 225 Active House Staff 07/07 2252 Active BASIC ELECTROLYTES PLUS BUN&CR 07/07 2241 Active Patient Data 07/07 2238 Active Admit to inpatient 07/07 221 Active Telemetry/Prosthetic Aides Teacher 07/07 203 Active Add-on Test (ER Only) 07/07 2025 Active EKG 07/07 1717 Active TROPONIN LEVEL 07/07 1716 Active GLYCOSYLATED HGB 07/07 1716 Active MAGNESIUM 07/07 1654 Active COMPREHENSIVE METABOLIC PANEL 07/07 1654 Active CBC WITHOUT DIFFERENTIAL 07/07 1654 Complete VTE Mechanical Prophylaxis 07/07 UNK Active Vital Signs 07/07 UNK Active Intake & Output 07/07 UNK Active FingerStick- Glucose 07/07 UNK Active Current Medications Sig/Ladonna Start time Last Medication Dose Stop Time Status Admin Atorvastatin Calcium 80 MG QPM 07/08 2199 UNVr (Lipitor) Aspirin Buffered 81 MG DAILY 07/08 1000 UNVr (Ecotrin) Calcitriol 0.25 MCG DAILY 07/08 1000 UNVr (Rocaltrol 0.25 Mcg Cap) Clopidogrel Bisulfate 75 MG DAILY 07/08 1000 UNVr (Plavix) Ferrous Sulfate 325 MG DAILY 07/08 1000 UNVr (Feosol) Metoprolol Tartrate 25 MG DAILY 07/08 1000 UNVr (Lopressor) Insulin Aspart 0 TIDAC 07/08 0800 UNVr (NovoLOG) Heparin Sodium 5,000 UNIT Q8 07/08 0600 UNVr (Porcine) Calcium Gluconate 1 GM ONCE ONE 07/08 0015 UNVr (Calcium Gluconate) 07/08 0114 Sodium Chloride 100 ML (Normal Saline 0.9%) Insulin Detemir 5 UNITS BID 07/08 0014 UNVr (Levemir) Sodium Polystyrene 60 ML ONCE ONE 07/07 2345 UNVr Sulfonate 07/07 2346 (Kayexalate) Laboratory Tests 07/07/17 2300: Anion Gap 13, Estimated GFR 17 L, BUN/Creatinine Ratio 25.4 H, Iron 45 L, TIBC 258 L, Ferritin Pending, Troponin I 0.03, TSH Pending, Free T4 Pending 07/07/17 2254: Troponin I Cancelled 07/07/17 1716: Anion Gap 14, Estimated GFR 17 L, BUN/Creatinine Ratio 27.4 H, Glucose 150 H, Hemoglobin A1c Pending, Calcium 7.7 L, Magnesium 1.8, Total Bilirubin 0.3, AST 20, ALT 30, Alkaline Phosphatase 73, Troponin I 0.03, Total Protein 6.1 L, Albumin 3.5, Globulin 2.6, Albumin/Globulin Ratio 1.3, CBC w Diff NO MAN DIFF REQ, RBC 2.99 L, MCV 92.1, MCH 30.2, MCHC 32.8 L, RDW 14.2, MPV 8.7, Gran % 81.2 H, Lymphocytes % 9.6 L, Monocytes % 6.4, Eosinophils % 1.8, Basophils % 1.0, Absolute Granulocytes 10.0 H, Absolute Lymphocytes 1.2, Absolute Monocytes 0.8 H, Absolute Eosinophils 0.2, Absolute Basophils 0.1 Patient denies any complaints labs were ordered from triage discussed with patient at length his plan of care case discussed with Dr. Gilbert who evaluated the patient agrees with plan patient's creatinine is at baseline Initial ED EKG: normal p-waves, normal sinus rhythm, hyperacute t waves Prior EKG: changed Rhythm Strip: normal sinus rhythm (Navid El) Departure Departure Time of Disposition: 2149 Disposition: STILL A PATIENT Condition: Stable Clinical Impression Primary Impression: Hyperkalemia Secondary Impressions: Acute electrocardiogram changes, Chronic kidney disease, Hypocalcemia Referrals: Ashley Tai MD (PCP/Family) Departure Forms: Customer Survey General Discharge Information Admission Note Spoke With: Dawood Viera MD Documentation of Exam: Documentation of any treatments & extenuating circumstances including Concerns Regarding Discharge (functional status, medication knowledge or non-compliance, living conditions, etc.) that warrant an admission rather than observation: [ nephrology consult, trend labs trendelectrolytes, cardio consult, premature discharge discharge would be medically harmful (Navid El) Departure Comments 07/07/17 Seen and personally examined the patient and I agree with the PAs evaluation. Hyperkalemia with EKG changes. The patient is being admitted to telemetry for further care. PA/MAINTENANCE ADVISOR Co-Sign Statement Statement: ED Attending supervision documentation- [x] I saw and evaluated the patient. I have also reviewed all the pertinent lab results and diagnostic results. I agree with the findings and the plan of care as documented in the PA's/MAINTENANCE ADVISOR's documentation. [] I have reviewed the ED Record and agree with the PA's/MAINTENANCE ADVISOR's documentation. [] Additions or exceptions (if any) to the PAs/MAINTENANCE ADVISOR's note and plan are summarized below: [] I have seen and personally examined the patient and I agree with the PAs evaluation. I put acute T-wave changes. Potassium of 6.0. The patient was treated with bicarbonate, calcium, Kayexalate. He was admitted to the telemetry unit for further care. (Mario Gilbert DO) Critical Care Note Critical Care Note Critical Care Time: 30-74 min (Navid El)
--- NOTE | 2017-07-07 22:49 | History & Physical ---
[facility] 7058: General Information and HPI MD Statement: I have seen and personally examined KIM PERALES SR and documented this H& P. The patient is a 77 year old M who presented with a patient stated chief complaint of [high potassium level]. Source of Information: patient Exam Limitations: no limitations History of Present Illness: 77-year-old gentleman with past medical history of coronary artery disease status post 1 stent 10 years ago, hypertension, diabetes, hyperlipidemia, diastolic heart failure, chronic kidney disease was sent by Dr. Del Cid with the lab work showing a potassium level of 6. Apparently patient was in his usual state of health, he was scheduled for lab work in preparation of his left arm fistula for possible dialysis in future at [facility]. Patient had his lab work done yesterday and was sent to [facility] ED because of his hypotension level. Patient denies chest pain, chest pressure, nausea, vomiting, abdominal pain, headache, fever, hematuria, decreased urine output, weakness. Patient endorses being tired for the last 1 year and decreased appetite for the past few weeks. His bowel and bladder habits are normal. Patient is on sliding scale Lantus insulin for his diabetes. He is not compliant with his diet and insulin for diabetes. Patient has been off lisinopril recently [which he doesn' t remember]. At home blood his blood sugar is around 485 . Patient had a stress test done a year ago which was found to be normal. Patient had left foot infection and was on cefadroxil in May 2017. Patient is seeing Dr. Cazares, and Madi Damian MD, Dr. Del Cid. 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 Home Who Do You Live With? self Services at Home: None Primary Language: Cameroonian Smoking Status: Former Smoker ETOH Use: denies use Functional Ability ADLs Independent: dressing, eating, toileting, bathing. Ambulation: walker IADLs Independent: shopping, housework, finances, food prep, telephone, medication admin. Needs Assist: transportation. Review of Systems Review of Systems Constitutional: Reports: weakness. EENTM: Reports: no symptoms. Cardiovascular: Reports: no symptoms. Respiratory: Reports: no symptoms. GI: Reports: no symptoms. Genitourinary: Reports: no symptoms. Exam & Diagnostic Data Last 24 Hrs of Vital Signs/I&O Vital Signs Date Time Temp Pulse Resp B/P B/P Pulse O2 O2 Flow FiO2 Mean Ox Delivery Rate 07/08 0000 98.5 73 16 145/66 98 Room Air 07/07 2305 98.5 77 18 141/64 98 Room Air 07/07 1708 98.0 78 22 190/118 97 Intake & Output 07/08 0800 07/08 0000 07/07 1600 Intake Total 1000 Output Total 300 Balance -300 1000 Intake, IV 1000 Intake, Oral 0 Output, Urine 300 Patient 125 lb 124 lb Weight Weight Reported by Patient Measurement Method Physical Exam General Appearance Alert, Oriented X3, Cooperative, No Acute Distress HEENT Atraumatic, PERRLA Neck Supple, No JVD Cardiovascular Regular Rate, Normal S1, Normal S2, No Murmurs Lungs Clear to Auscultation, Normal Air Movement Abdomen Soft, No Tenderness Neurological Normal Speech, Strength at 5/5 X4 Ext, Normal Tone, Sensation Intact, Cranial Nerves 3-12 NL Last 24 Hrs of Labs/Aldo: Laboratory Tests 07/07/17 2300: Anion Gap 13, Estimated GFR 17 L, BUN/Creatinine Ratio 25.4 H, Iron 45 L, TIBC 258 L, Ferritin 112.0, Troponin I 0.03, TSH 1.300, Free T4 1.56 07/07/17 2254: Troponin I Cancelled 07/07/17 1716: Anion Gap 14, Estimated GFR 17 L, BUN/Creatinine Ratio 27.4 H, Glucose 150 H, Hemoglobin A1c Pending, Calcium 7.7 L, Magnesium 1.8, Total Bilirubin 0.3, AST 20, ALT 30, Alkaline Phosphatase 73, Troponin I 0.03, Total Protein 6.1 L, Albumin 3.5, Globulin 2.6, Albumin/Globulin Ratio 1.3, CBC w Diff NO MAN DIFF REQ, RBC 2.99 L, MCV 92.1, MCH 30.2, MCHC 32.8 L, RDW 14.2, MPV 8.7, Gran % 81.2 H, Lymphocytes % 9.6 L, Monocytes % 6.4, Eosinophils % 1.8, Basophils % 1.0, Absolute Granulocytes 10.0 H, Absolute Lymphocytes 1.2, Absolute Monocytes 0.8 H, Absolute Eosinophils 0.2, Absolute Basophils 0.1 Diagnostic Data EKG Results Sinus rhythm, tall T waves, left anterior fascicular block, left axis. Assessment/Plan Assessment: 77-year-old gentleman with past medical history of coronary artery disease status post 1 stent 10 years ago, hypertension, diabetes, hyperlipidemia, diastolic heart failure, chronic kidney disease was sent by Dr. Del Cid with the lab work showing a potassium level of 6. Patient is admitted to telemetry for further evaluation and management. Admission vitals Temperature 90.8, pulse rate 78, respiratory 22, blood pressure 190/118-------> 141/64, saturation 98 room air. Admission labs Sodium 146, potassium 6-----> 5.9, BUN 89, creatinine 3.5, troponin 0.03, TSH 1.3, WBC 12.3,hemoglobin 9.1, platelet 204 ED treatment Normal saline 2 L, Kayexalate 60 mL twice, calcium gluconate 1 g, Assessment and plan 1. Hyperkalemia with EKG changes 2. Chronic medical condition-coronary artery disease, chronic kidney disease, hypertension, hyperlipidemia, diabetes, diastolic heart failure * Admitted in telemetry. Do serial troponin and EKg. Patient was treated with Kayexalate and calcium gluconate with insulin in ED. We will repeat potassium level at 3 clock and 6 AM. Patient is having multiple bowel movements since the first Kayexalate. We will call Dr. Del Cid in the a.m. Avoid any nephrotoxic medication. Patient calcium level is 7.7 with albumin of 3.5 with a corrected calcium of 8.1. Patient has a hemoglobin level of 9.1. We will send iron studies. * Diabetes-patient is noncompliant with his medication and diet. accu checks and Novolog sliding sclae insulin. We will place endo consult in a.m. * Coronary artery disease-given the EKG changes we will call Dr. Cazares in a.m. * We will continue rest of his home medication. * Code-full code * Diet-diabetic diet * DVT prophylaxis-subcutaneous heparin As Ranked By This Provider Problem List: 1. Hyperkalemia Core Measures/Misc (02/01) Acute Coronary Syndrome ACS Diagnosis: No Congestive Heart Failure Congestive Heart Failure Diagnosis No Cerebrovascular Accident CVA/TIA Diagnosis: No VTE (View Protocol) VTE Risk Factors Age>40 No Mechanical VTE Prophylaxis d/t Other No VTE Pharm Prophylaxis d/t Other Sepsis (View protocol) Sepsis Present: No Terrie,Margarette 07/07/17 3078: General Information and HPI Allergies/Medications Home Med list Aspirin (Ecotrin*) 81 MG TABLET.DR 1 TAB PO DAILY HEART/BLOOD (Reported) Atorvastatin Calcium 80 MG TABLET 1 TAB PO QPM CHOLESTEROL (Reported) Calcitriol 0.25 MCG CAPSULE 1 CAP PO DAILY VITAMIN SUPPORT (Reported) Clopidogrel Bisulfate (Clopidogrel) 75 MG TABLET 1 TAB PO DAILY BLOOD THINNER (Reported) Ferrous Sulfate 325 MG (65 MG IRON) TABLET 1 TAB PO DAILY SUPPLEMENT ( Reported) Insulin Aspart (Novolog) 100 UNIT/ML VIAL 8-10 UNITS SC BID PRN DM (Reported) Insulin Glargine,Hum.rec.anlog (Lantus Solostar) 100 UNIT/ML (3 ML) INSULN.PEN 6-10 UNIT SC QPM DM (Reported) Metoprolol Succinate 25 MG TAB 1 TAB PO DAILY HEART/BP (Reported) Resident Review Statement Resident Statement: examined this patient, discussed with internet manager, agreed with internet manager, discussed with family, reviewed EMR data (avail), discussed with nursing , discussed with case mgmt, reviewed images, amended to note Other Findings: 77-year-old male with a past medical history of diabetes, coronary artery disease s/p stent 10 years ago, hypertension, hyperlipidemia, COPD was sent in by his core rescuer Oh Del Cid MD after he was found to be hyperkalemic to 6.0. According to the patient he was at [facility] yesterday for blood work prior to placement of stent?/ fistula of his left arm. States that he was subsequently called for Oh Del Cid MD's office as he was found to be hyperkalemic to 6.0 and apparently he also had an EKG done at the facility and reportedly they were not happy with the ECG which is why they sent him to the ER. She denies any chest pain, shortness of breath, nausea, vomiting, abdominal pain , fever, chills, headache, dizziness, lightheadedness however does endorse feeling very tired over the course of 1 year. He states that he is not been compliant with his diet and endorses having blood sugars 2-3 and 400s note she recently had an infection in his right foot for which he was prescribed cefadroxil by his enamel cracker Dr. Pool. He finished a 14 day course. Of note patient lives by himself and he manages medication administration by himself. He states that he is on NovoLog sliding scale and Lantus sliding scale and follows up with Dr. Damian. Vitals on admission hypertensive to 190/118, respiratory rate of 22, pulse 78, afebrile saturating 97% on room air. On physical exam he is alert, oriented 3 and in no acute distress lying comfortably in bed. HEENT revealed PERRLA, moist mucous membrane. Examination of the neck did not reveal any elevated JVD, no cervical lymphadenopathy. Cardiovascular exam pertinent for normal S1, S2, no murmurs rubs or gallops appreciated. Chest was clear to auscultation bilaterally. Abdominal exam was benign with abdomen soft, nontender, nondistended with normal bowel sounds in all 4 quadrants. No. Examination of the lower extremities revealed bilateral 1 + lower extremity edema. Labs pertinent for leukocytosis with a white blood cell count 12,300, H&H 9.1/ 27.6 and an MCV of 92.1 and a platelet count of 202,000. Serum chemistries reveal a sodium of 141, potassium of 6.0, bicarbonate of 13, anion gap 14, BUN 96 with creatinine of 3.5 baseline creatinine runs around 3.1- 3.4. Serum glucose 150, hypocalcemia with a calcium 7.7, mag of 1.8, AST ALT unremarkable being 20/30, total bili 0.3 and a first set of troponin 0.03. EKG revealed normal sinus rhythm with a heart rate of 82, questionable left anterior fascicular block, tall T waves in V1 to V4, VT interval 172. In the ER he received Kayexalate 16 animals by mouth 1, normal saline boluses 1 m 2 and calcium gluconate IV 1. Assessment and plan Patient to telemetry given hyperkalemia and EKG changes and monitoring of cardiac arrhythmia #Hyperkalemia - S/P Kaxeylate x2, and IV insulin 10 units, dextrose and calcium gluconate 9 Follow-up repeat BEP Nephrology consult in a.m. with Continue gentle IV hydration #Uncontrolled type 2 diabetes Start patient on Levemir 5 units twice a day and NovoLog sliding scale Endocrinology consult with Dr. Damian in a.m. Continue to monitor Accu-Cheks 3 times a day at bedtime Follow-up hemoglobin A1c #Coronary artery disease Continue patient on Plavix 75 mg by mouth, Lipitor 80 mg daily, aspirin 81 mg daily, metoprolol 12.5 mg daily Rule out ACS with troponins and EKG at 11 PM and 5 AM DVT prophylaxis Heparin 5000 international units 3 times a day subcutaneous Diet Consistent carb with 2 g potassium and sodium restriction next CODE STATUS Full code Maximiliano MORALEZ, [employer] 07/08/17 0210: Attending MD Review Statement Attending Statement Attending MD Statement: examined this patient, discuss w/resident/PA/STRAW HAT BRIM RAISER OPERATOR, agreed w/resident/PA/STRAW HAT BRIM RAISER OPERATOR, reviewed images, amended to note Attending Assessment/Plan: 77 yo M with h/o polio, HTN, CAD s/p stent, cardiomyopathy, chronic systolic+ diastolic CHF, DM, gastritis, CKD stage 4 with a plan for AV fistula placement in anticipation of need for dialysis, is sent in by Dr. Del Cid for abnormal labs (K 6.0). Patient reports feeling weak and has a poor appetite. Denies myalgias, chest pain, dyspnea or lightheadedness. He also reports that his sugars have been high as he does not follow a diabetic diet. Of note, patient was treated with Cefadroxil for a left foot infection by Shot Examiner (May 2017). Vitals stable. Exam as above. Labs: WBC 12.3, H/H 9.1/27.6, Na 141, K 6.0, bicarb 13, AG 14, BUN 96, creat 3.5, glucose 150, Ca 7.7, trop neg. EKG: sinus rhythm, peaked Twaves V1-3, LAFB, TWI in V5-6. Echo (2017): EF > 55%, stage 1 diastolic dysfunction. Assessment and plan: 1. Hyperkalemia with acute EKG changes 2. Chronic kidney disease stage 4 3. Hypocalcemia 4. Normal AG metabolic acidosis 5. Leukocytosis likely reactive 6. Normocytic anemia anemia of chronic disease 7. Uncontrolled type 2 diabetes - Admit to Telemetry - Monitor for arrhythmias - Serial EKG and troponin - Cardio consult (Dr. Cazares) - Treat hyperkalemia with kayexalate, insulind dextrose and calcium gluconate - Gentle IV hydration - Nephro consult - No nephrotoxic meds patient has been off lisinopril. - Endo consult for diabetes management, check HbA1c, continue levemir and novolog. DVT ppx Hep SC. Full code.
--- NOTE | 2017-07-08 02:12 | Admission Certification ---
Admission Certification Certification Statement - As attending physician, I certify that at the time of - admission, based on clinical presentation, severity of - symptoms, need for further diagnostic testing and - therapeutic interventions, and risk of adverse outcomes - without in-hospital treatment, in my clinical assessment, - this patient requires an acute hospital stay for a minimum - of two nights or longer. I have also considered psychsocial - factors such as support system, advanced age, financial - issues, cognitive issues, and failed out-patient treatments, - past re-admission history, safety of patient, and lack of - compliance as applicable. Specific rationale supporting this admission is: Hyperkalemia, CKD stage 4-5, acute EKG changes.
[2017-07-08 04:00] VITALS: BP 165/72
[2017-07-08 05:24] LABS: ABSOLUTE BASOPHIL COUNT 0 /CUMM (0.0-0.2); ABSOLUTE EOSINOPHIL COUNT 0.2 /CUMM (0.0-0.7); ABSOLUTE GRANULOCYTE CT 6.6 /CUMM (1.4-6.5); ABSOLUTE LYMPH COUNT 1.4 /CUMM (1.2-3.4); ABSOLUTE MONOCYTE COUNT 0.7 /CUMM (0.10-0.60); BASOPHIL % 0.5 % (0.0-2.0); EOSINOPHIL % 2.3 % (0-5); GRANULOCYTE % 73.9 % (42.2-75.2); MEAN CORPUSCULAR HGB 30.1 PG (27.0-31.0); MEAN CORPUSCULAR HGB CONC 32.7 G/DL (33.0-37.0); MEAN PLATELET VOLUME 8.3 FL (7.4-10.4); PLATELET COUNT 193 /CUMM (130-400); RBC DISTRIBUTION WIDTH 14.4 % (11.5-14.5); WHITE BLOOD CELL COUNT 8.9 /CUMM (4.8-10.8)
--- NOTE | 2017-07-08 07:20 | PN- Housestaff ---
Jony Lopez MD 07/08/17 0720: Subjective Follow-up For: Hyperkalemia EKG changes Subjective: Patient seen and examined. He is seen lying on his left side in bed resting comfortably. He appears to be in no acute distress. He reports feeling well other than his baseline fatigue that he has had for the last year. He denies any issues overnight, including headache, fever, chills, chest pain, or shortness of breath. Review of Systems Constitutional: Reports: see HPI. Objective Last 24 Hrs of Vital Signs/I&O Vital Signs Date Time Temp Pulse Resp B/P B/P Pulse O2 O2 Flow FiO2 Mean Ox Delivery Rate 07/08 0727 98.1 80 25 160/84 98 Room Air 07/08 0400 97.7 80 19 165/72 99 Room Air 07/08 0000 98.5 73 16 145/66 98 Room Air 07/07 2305 98.5 77 18 141/64 98 Room Air 07/07 1708 98.0 78 22 190/118 97 Intake & Output 07/08 1600 07/08 0800 07/08 0000 Intake Total 1000 Output Total 300 Balance -300 1000 Intake, IV 1000 Intake, Oral 0 Output, Urine 300 Patient 56.699 kg 56.245 kg Weight Weight Reported by Patient Measurement Method Physical Exam General Appearance: Alert, Oriented X3, Cooperative, No Acute Distress Other Physical Findings: GEN: well developed, thin elderly man in no acute distress HEENT: NCAT, PERRL, EOMI, anicteric sclera, MMM NECK: Supple, no JVD, trachea midline CARD: Normal S1/S2 w/o m/g/r; RRR PULM: CTA bilaterally ABD: Soft, NT, ND, BS+ NEURO: Awake and alert, CN II-XII grossly intact EXT: normal pulses, no edema, various lower extremity wounds in various stages of healing Current Medications: Current Medications Sig/Ladonna Start time Last Medication Dose Route Stop Time Status Admin Acetaminophen 650 MG Q4P PRN 07/08 0900 AC PO Aspirin Buffered 81 MG DAILY 07/08 1000 AC PO Atorvastatin Calcium 80 MG QPM 07/08 2200 AC PO Calcitriol 0.25 MCG DAILY 07/08 1000 AC PO Calcium Gluconate 0 .STK-MED ONE 07/08 0459 DC IV Calcium Gluconate 1 GM ONCE ONE 07/08 0015 DC 07/08 Sodium Chloride 100 ML IV 07/08 0114 0516 Calcium Gluconate 0 .STK-MED ONE 07/07 2054 DC IV Calcium Gluconate 1 GM ONCE ONE 07/07 2029 DC 07/07 Sodium Chloride 100 ML IV 07/07 2128 214 Clopidogrel Bisulfate 75 MG DAILY 07/08 1000 AC PO Dextrose 25 GM ONCE ONE 07/07 2300 DC 07/07 IV 07/07 2301 2339 Ferrous Sulfate 325 MG DAILY 07/08 1000 AC PO Heparin Sodium 5,000 UNIT Q8 07/08 0600 AC 07/08 (Porcine) SC 0552 Heparin Sodium 0 .STK-MED ONE 07/08 0555 DC (Porcine) .ROUTE Insulin Aspart 0 TIDAC 07/08 0800 AC SC Insulin Detemir 5 UNITS BID 07/08 0014 AC 07/08 SC 0134 Insulin Human Regular 10 UNITS ONCE ONE 07/07 2300 DC 07/07 IV 07/07 230 2339 Metoprolol Succinate 12.5 MG DAILY 07/08 1000 AC PO Sodium Chloride 1,000 ML BOLUS ONE 07/07 2029 DC 07/07 IV 07/07 Sodium Chloride 1,000 ML BOLUS ONE 07/07 2029 DC 07/07 IV 07/07 2128 233 Sodium Polystyrene 60 ML ONCE ONE 07/07 2345 DC Sulfonate PO 07/07 2346 Sodium Polystyrene 0 .STK-MED ONE 07/07 2054 DC Sulfonate .ROUTE Sodium Polystyrene 60 ML ONCE ONE 07/07 2029 DC 07/07 Sulfonate PO 07/07 Last 24 Hrs of Lab/Aldo Results Last 24 Hrs of Labs/Mics: Laboratory Tests 07/08/17 0600: Sodium Cancelled, Potassium Cancelled, Chloride Cancelled, Carbon Dioxide Cancelled, Anion Gap Cancelled, BUN Cancelled, Creatinine Cancelled, BUN/ Creatinine Ratio Cancelled 07/08/17 0512: Anion Gap 10, Estimated GFR 19 L, BUN/Creatinine Ratio 25.6 H, Troponin I 0.04 , CBC w Diff NO MAN DIFF REQ, RBC 2.50 L, MCV 92.0, MCH 30.1, MCHC 32.7 L, RDW 14.4, MPV 8.3, Gran % 73.9, Lymphocytes % 15.5 L, Monocytes % 7.8, Eosinophils % 2.3, Basophils % 0.5, Absolute Granulocytes 6.6 H, Absolute Lymphocytes 1.4, Absolute Monocytes 0.7 H, Absolute Eosinophils 0.2, Absolute Basophils 0 07/07/17 2300: Anion Gap 13, Estimated GFR 17 L, BUN/Creatinine Ratio 25.4 H, Iron 45 L, TIBC 258 L, Ferritin 112.0, Troponin I 0.03, TSH 1.300, Free T4 1.56 07/07/17 2254: Troponin I Cancelled 07/07/17 1716: Anion Gap 14, Estimated GFR 17 L, BUN/Creatinine Ratio 27.4 H, Glucose 150 H, Hemoglobin A1c 7.4 H, Calcium 7.7 L, Magnesium 1.8, Total Bilirubin 0.3, AST 20, ALT 30, Alkaline Phosphatase 73, Troponin I 0.03, Total Protein 6.1 L, Albumin 3.5, Globulin 2.6, Albumin/Globulin Ratio 1.3, CBC w Diff NO MAN DIFF REQ, RBC 2.99 L, MCV 92.1, MCH 30.2, MCHC 32.8 L, RDW 14.2, MPV 8.7, Gran % 81.2 H, Lymphocytes % 9.6 L, Monocytes % 6.4, Eosinophils % 1.8, Basophils % 1.0, Absolute Granulocytes 10.0 H, Absolute Lymphocytes 1.2, Absolute Monocytes 0.8 H, Absolute Eosinophils 0.2, Absolute Basophils 0.1 Assessment/Plan Assessment: 77 year old man with multiple medical problems significant for CKD-IV, CAD, DCHF , and IDDM seen for evaluation of hyperkalemia found on pre-operative blood work. Patient is scheduled to undergo a left upper extremity AV fistula on and obtained blood work two days prior that demonstrated a markedly high potassium for which patient was instructed to report to the ED by his [employer]ist[employer] Dr. Del Cid. Patient was admitted for persistent hyperkalemia with EKG changes. Patient is complaining of only his baseline fatigue and weakness and otherwise feels fine. He received kayexalate 60 mg twice last evening resulting in several bowel movements with resolution of his hyperkalemia this morning. Collateral information obtained from patients sister reveals that patient received epogen infusions in the past for anemia but stopped doing so approximately three years ago after the infusion center became part of [facility] which wasnt covered by his insurance. She reporst that apparently Dr. Del Cid said his anemia was stable at that time and that he did not require any further epogen. Problem List -Hyperkalemia with EKG Changes -CAD s/p PCI with stent -Diastolic Heart Failure -Insulin-dependent diabetes mellitus -Chronic Kidney Disease, Stage IV -Hypertension -Hyperlipidemia Plan -Telemetry -Guiac all stools -Type & cross -Accuchecks TIDAC with Novolog SSI -Levemir 5 units BID -Continue home meds: Atorvastatin, Aspirin, Calitriol, Plavix, Ferrous Sulfate, Metoprolol -Cardiology consult for EKG changes -Nephrology consult for CKD and hyperkalemia -Endocrinology consult for diabetes management -Nutrition consult for dietary instruction on Renal Diet -Follow up Iron Panel, HbA1c -Repeat EKG now -Pain control with acetaminophen -Diabetic Diet with 2g K/Phos restriction -DVT PPx with subcutaneous heparin -FULL CODE Problem List: 1. Acute electrocardiogram changes 2. Hyperkalemia Pain Ratin Pain Location: None Pain Goal: Remain pain free Pain Plan: See assessment Tomorrow's Labs & Rationales: CBC, BMP, MG, Type & Cross Katrina Albert MD 07/08/17 1318: Attending MD Review Statement Attending Statement Attending MD Statement: examined this patient, discuss w/resident/PA/DIP DYER, agreed w/resident/PA/DIP DYER, reviewed EMR data (avail), discussed with nursing, reviewed images Attending Assessment/Plan: Patient feels well. He denies shortness of breath, dizziness, palpitations or fatigue. He is a 77-year-old male with a past medical history of hypertension, diabetes on insulin, coronary artery disease status post stent placement on aspirin and Plavix and advanced CKD. He says that he is scheduled to have an AV fistula at [facility] and he thinks it scheduled for tomorrow. He was sent in for hyperkalemia and was noted to have hyperkalemia with EKG changes. His GFR is at his baseline with a creatinine of 3.2 and it is unclear why he suddenly became hyperkalemic. Appreciate nephrology evaluation and will get a nutrition consult about low potassium foods, follow the K closely. He is anemic with a sudden hemoglobin drop from 9-7. Will guaiac all stool, check his blood work for deficiency anemia. My gut feeling is this is probably going to be secondary to the renal disease and he says there have been insurance issues with coverage for erythropoietin which we need to confirm. I spoke to Dr. Agustin who feels that the AV fistula is an elective procedure that can be rescheduled and he assured me that he will follow-up on that. We'll need to monitor the hemoglobin closely especially given the dual antiplatelet therapy. I don't think he needs to be banana expert given that his potassium has normalized, and there are no acute cardiac issues.
--- NOTE | 2017-07-08 10:28 | Cons- Cardiology ---
General Information and HPI Consulting Request Date of Consult: 07/08/17 Requested By: Lan MORALEZ,Adrian Carpio Reason for Consult: Hyperkalemia with EKG changes Source of Information: patient, old records Exam Limitations: no limitations History of Present Illness: Mr. Bernard is 77 year old male with past medical history significant for osteomyelitis right lower extremity, hypertension, CAD s/p stent 12 years ago, cardiomyopathy, HFPEF, DM, gastritis, CKD stage 4 who presented to ED yesterday for hyperkalemia of 6. Patient was referred by Dr. Del Cid who obtains lab work for AV fistula placement that revealed K of 6. Patient denied any chest pain, palpitation, shortness of breath, dizziness, blurry vision, headaches, confusion. Patient denied taking potassium tablets, reported avoiding eating banana for the last year because was told to increase his potassium. Patient never had dialysis before. Last echocardiogram April 2017 with ejection fraction 55% and diastolic type I failure. Mild concentric left ventricular hypertrophy. Allergies/Medications Allergies: Coded Allergies: No Known Allergies (04/01/17) Home Med List: Aspirin (Ecotrin*) 81 MG TABLET.DR 1 TAB PO DAILY HEART/BLOOD (Reported) Atorvastatin Calcium 80 MG TABLET 1 TAB PO QPM CHOLESTEROL (Reported) Calcitriol 0.25 MCG CAPSULE 1 CAP PO DAILY VITAMIN SUPPORT (Reported) Clopidogrel Bisulfate (Clopidogrel) 75 MG TABLET 1 TAB PO DAILY BLOOD THINNER (Reported) Ferrous Sulfate 325 MG (65 MG IRON) TABLET 1 TAB PO DAILY SUPPLEMENT ( Reported) Insulin Aspart (Novolog) 100 UNIT/ML VIAL 8-10 UNITS SC BID PRN DM (Reported) Insulin Glargine,Hum.rec.anlog (Lantus Solostar) 100 UNIT/ML (3 ML) INSULN.PEN 6-10 UNIT SC QPM DM (Reported) Metoprolol Succinate 25 MG TAB 1 TAB PO DAILY HEART/BP (Reported) Past History Travel History Traveled to [place] past 21 day No Medical History Blood Transfusion Hx: No Neurological: polio EENT: NONE Cardiovascular: CAD, CHF, hypertension, hyperlipidemia, NSTEMI Respiratory: pneumonia Gastrointestinal: NONE Hepatic: NONE Renal: CKD Musculoskeletal: POLIO Psychiatric: NONE Endocrine: diabetes Blood Disorders: SEPSIS FROM FOOT INFECTIN Cancer(s): NONE ACCESS NURSE/Reproductive: NONE Other Medical Hx: 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 Home Who Do You Live With? self Services at Home: None Primary Language: Bulgarian Smoking Status: Former Smoker ETOH Use: denies use Functional Ability ADLs Independent: dressing, eating, toileting, bathing. Ambulation: walker IADLs Independent: shopping, housework, finances, food prep, telephone, medication admin. Needs Assist: transportation. ECHO Results (as available) EF% 55 Exam & Diagnostic Data Vital Signs and I&O Vital Signs Date Time Temp Pulse Resp B/P B/P Pulse O2 O2 Flow FiO2 Mean Ox Delivery Rate 07/08 1137 80 146/90 99 Room Air 07/08 0800 Room Air 07/08 0727 98.1 80 25 160/84 98 Room Air 07/08 0400 97.7 80 19 165/72 99 Room Air 07/08 0000 98.5 73 16 145/66 98 Room Air 07/07 2305 98.5 77 18 141/64 98 Room Air 07/07 1708 98.0 78 22 190/118 97 Intake & Output 07/08 1600 07/08 0800 07/08 0000 07/07 1600 07/07 0800 07/07 0000 Intake Total 1000 Output Total 200 300 Balance -200 -300 1000 Intake, IV 1000 Intake, Oral 0 Output, Urine 200 300 Patient 56.699 kg 56.245 kg Weight Weight Reported by Patient Measurement Method Physical Exam: No acute distress HEENT supple, no JVD CVS S1, S2 regular, no murmur Chest Clear, BL equal air entery Abdomen soft, BS + LE BL +1 pedal edema Labs/Aldo Results: Laboratory Tests 07/08 07/08 07/07 0600 0512 2300 Chemistry Sodium (137 - 145 mmol/L) Cancelled 147 H 146 H Potassium (3.5 - 5.1 mmol/L) Cancelled 4.7 5.9 H Chloride (98 - 107 mmol/L) Cancelled 122 H 118 H Carbon Dioxide (22 - 30 mmol/L) Cancelled 15 L 14 L Anion Gap (5 - 16) Cancelled 10 13 BUN (9 - 20 mg/dL) Cancelled 82 H 89 H Creatinine (0.7 - 1.2 mg/dL) Cancelled 3.2 H 3.5 H Estimated GFR (>60 ml/min) 19 L 17 L BUN/Creatinine Ratio (7 - 25 %) Cancelled 25.6 H 25.4 H Iron (49 - 181 ug/dL) 45 L TIBC (261 - 462 ug/dL) 258 L Ferritin (17.9 - 464 ng/mL) 112.0 Troponin I (<0.11 ng/ml) 0.04 0.03 TSH (0.270 - 4.200 uIU/mL) 1.300 Free T4 (0.78 - 2.44 ng/dL) 1.56 Hematology CBC w Diff NO MAN DIFF REQ WBC (4.8 - 10.8 /CUMM) 8.9 RBC (4.70 - 6.10 /CUMM) 2.50 L Hgb (14.0 - 18.0 G/DL) 7.5 L Hct (42 - 52 %) 23.0 L MCV (80.0 - 94.0 FL) 92.0 MCH (27.0 - 31.0 PG) 30.1 MCHC (33.0 - 37.0 G/DL) 32.7 L RDW (11.5 - 14.5 %) 14.4 Plt Count (130 - 400 /CUMM) 193 MPV (7.4 - 10.4 FL) 8.3 Gran % (42.2 - 75.2 %) 73.9 Lymphocytes % (20.5 - 51.1 %) 15.5 L Monocytes % (1.7 - 9.3 %) 7.8 Eosinophils % (0 - 5 %) 2.3 Basophils % (0.0 - 2.0 %) 0.5 Absolute Granulocytes (1.4 - 6.5 /CUMM) 6.6 H Absolute Lymphocytes (1.2 - 3.4 /CUMM) 1.4 Absolute Monocytes (0.10 - 0.60 /CUMM) 0.7 H Absolute Eosinophils (0.0 - 0.7 /CUMM) 0.2 Absolute Basophils (0.0 - 0.2 /CUMM) 0 07/07 07/07 3194 1716 Chemistry Sodium (137 - 145 mmol/L) 141 Potassium (3.5 - 5.1 mmol/L) 6.0 *H Chloride (98 - 107 mmol/L) 115 H Carbon Dioxide (22 - 30 mmol/L) 13 L Anion Gap (5 - 16) 14 BUN (9 - 20 mg/dL) 96 H Creatinine (0.7 - 1.2 mg/dL) 3.5 H Estimated GFR (>60 ml/min) 17 L BUN/Creatinine Ratio (7 - 25 %) 27.4 H Glucose (65 - 99 mg/dL) 150 H Hemoglobin A1c (4.2 - 5.8 %) 7.4 H Calcium (8.4 - 10.2 mg/dL) 7.7 L Magnesium (1.6 - 2.3 mg/dL) 1.8 Total Bilirubin (0.2 - 1.3 mg/dL) 0.3 AST (17 - 59 U/L) 20 ALT (21 - 72 U/L) 30 Alkaline Phosphatase (< 127 U/L) 73 Troponin I (<0.11 ng/ml) Cancelled 0.03 Total Protein (6.3 - 8.2 g/dL) 6.1 L Albumin (3.5 - 5.0 g/dL) 3.5 Globulin (1.9 - 4.2 gm/dL) 2.6 Albumin/Globulin Ratio (1.1 - 2.2 %) 1.3 Hematology CBC w Diff NO MAN DIFF REQ WBC (4.8 - 10.8 /CUMM) 12.3 H RBC (4.70 - 6.10 /CUMM) 2.99 L Hgb (14.0 - 18.0 G/DL) 9.1 L Hct (42 - 52 %) 27.6 L MCV (80.0 - 94.0 FL) 92.1 MCH (27.0 - 31.0 PG) 30.2 MCHC (33.0 - 37.0 G/DL) 32.8 L RDW (11.5 - 14.5 %) 14.2 Plt Count (130 - 400 /CUMM) 202 MPV (7.4 - 10.4 FL) 8.7 Gran % (42.2 - 75.2 %) 81.2 H Lymphocytes % (20.5 - 51.1 %) 9.6 L Monocytes % (1.7 - 9.3 %) 6.4 Eosinophils % (0 - 5 %) 1.8 Basophils % (0.0 - 2.0 %) 1.0 Absolute Granulocytes (1.4 - 6.5 /CUMM) 10.0 H Absolute Lymphocytes (1.2 - 3.4 /CUMM) 1.2 Absolute Monocytes (0.10 - 0.60 /CUMM) 0.8 H Absolute Eosinophils (0.0 - 0.7 /CUMM) 0.2 Absolute Basophils (0.0 - 0.2 /CUMM) 0.1 Diagnostic Data EKG Results Sinus rhythm Chronic ST changes V1, V2 and V3 New peaked T-wave V4, V5 Assessment/Plan Assessment/Plan Mr. Bernard is 77 year old male with past medical history significant for osteomyelitis right lower extremity, hypertension, CAD s/p stent 12 years ago, cardiomyopathy, HFPEF, DM, gastritis, CKD stage 4 who presented to ED yesterday for hyperkalemia of 6. Patient was referred by Dr. Del Cid who obtains lab work for AV fistula placement that revealed K of 6. Problem list -Hyperkalemia with EKG changes -Troponin negativex3 -History of CAD s/p Stent on dual antiplatelet therapy -Stage IV chronic kidney disease with plans for dialysis Recommendation -Continue cdl driver -Close monitoring of potassium, it has been slowly increasing since March 2017 -Consider nephrology consultation -Repeat EKG later this evening, EKG changes from hyperkalemia will take time to resolve -Consider obtaining hemoglobin A1c -Continue diabetic management -Nutritional consultation Consult Acknowledgment - Thank you for your consult request.
[2017-07-08 11:37] VITALS: BP 146/90
--- NOTE | 2017-07-08 12:27 | Cons- Nephrology ---
General Information and HPI Consulting Request Date of Consult: 07/08/17 Requested By: Lan MORALEZ,Adrian Carpio History of Present Illness: 77 yo male with histoyr of DM, CKD stage4 with baseline creatinine around 3. He has a tendency towards hyperkalemia and was not on RAAS inhibition because of this. He was scheduled for an AVF later this week at but outpatient blood work revealed a potassium of 6. He was sent to the ED here where potassim was again 6.0, creatinine was near baseline at 3.4. He was treated with Kayexalate, potassium is down to 4.7 this AM. He denies high potassium foods but does occassionally eat mashed potatoes, beans and lots of canned soups (clear broth). Also of note patient's hemoglobin was 9.1 on admission but has fallen to 7.5 this AM. No dark or bloody stools. He stated he saw a physician in the past about getting "shots" for anemia but insurance wouldn't cover it. FH: positive for DM, no kidney disease Allergies/Medications Allergies: Coded Allergies: No Known Allergies (04/01/17) Home Med List: Aspirin (Ecotrin*) 81 MG TABLET.DR 1 TAB PO DAILY HEART/BLOOD (Reported) Atorvastatin Calcium 80 MG TABLET 1 TAB PO QPM CHOLESTEROL (Reported) Calcitriol 0.25 MCG CAPSULE 1 CAP PO DAILY VITAMIN SUPPORT (Reported) Clopidogrel Bisulfate (Clopidogrel) 75 MG TABLET 1 TAB PO DAILY BLOOD THINNER (Reported) Ferrous Sulfate 325 MG (65 MG IRON) TABLET 1 TAB PO DAILY SUPPLEMENT ( Reported) Insulin Aspart (Novolog) 100 UNIT/ML VIAL 8-10 UNITS SC BID PRN DM (Reported) Insulin Glargine,Hum.rec.anlog (Lantus Solostar) 100 UNIT/ML (3 ML) INSULN.PEN 6-10 UNIT SC QPM DM (Reported) Metoprolol Succinate 25 MG TAB 1 TAB PO DAILY HEART/BP (Reported) Current Medications: Current Medications Sig/Ladonna Start time Last Medication Dose Route Stop Time Status Admin Acetaminophen 650 MG Q4P PRN 07/08 0900 AC PO Aspirin Buffered 81 MG DAILY 07/08 1000 AC 07/08 PO 1136 Atorvastatin Calcium 80 MG QPM 07/08 2200 AC PO Calcitriol 0.25 MCG DAILY 07/08 1000 AC 07/08 PO 1136 Calcium Gluconate 0 .STK-MED ONE 07/08 0459 DC IV Calcium Gluconate 1 GM ONCE ONE 07/08 0015 DC 07/08 Sodium Chloride 100 ML IV 07/08 0114 0516 Calcium Gluconate 0 .STK-MED ONE 07/07 2054 DC IV Calcium Gluconate 1 GM ONCE ONE 07/07 2030 DC 07/07 Sodium Chloride 100 ML IV 07/07 2128 2145 Clopidogrel Bisulfate 75 MG DAILY 07/08 1000 AC 07/08 PO 1136 Dextrose 25 GM ONCE ONE 07/07 2300 DC 07/07 IV 07/07 230 2339 Ferrous Sulfate 325 MG DAILY 07/08 1000 AC 07/08 PO 1136 Heparin Sodium 5,000 UNIT Q8 07/08 0600 AC 07/08 (Porcine) SC 0552 Heparin Sodium 0 .STK-MED ONE 07/08 0555 DC (Porcine) .ROUTE Insulin Aspart 0 TIDAC 07/08 0800 AC SC Insulin Detemir 5 UNITS BID 07/08 0014 AC 07/08 SC 0134 Insulin Human Regular 10 UNITS ONCE ONE 07/07 2300 DC 07/07 IV 07/07 2300 233 Metoprolol Succinate 12.5 MG DAILY 07/08 1000 AC 07/08 PO 1136 Sodium Chloride 1,000 ML BOLUS ONE 07/07 2029 DC 07/07 IV 07/07 2128 214 Sodium Chloride 1,000 ML BOLUS ONE 07/07 2029 DC 07/07 IV 07/07 2128 233 Sodium Polystyrene 60 ML ONCE ONE 07/07 2345 DC Sulfonate PO 07/07 2346 Sodium Polystyrene 0 .STK-MED ONE 07/07 2054 DC Sulfonate .ROUTE Sodium Polystyrene 60 ML ONCE ONE 07/07 2029 DC 07/07 Sulfonate PO 07/07 Review of Systems Review of Systems: Negative except as noted above. 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 Home Who Do You Live With? self Services at Home: None Primary Language: Czech Smoking Status: Former Smoker ETOH Use: denies use Functional Ability ADLs Independent: dressing, eating, toileting, bathing. Ambulation: walker IADLs Independent: shopping, housework, finances, food prep, telephone, medication admin. Needs Assist: transportation. ECHO Results (as available) EF% 55 Exam & Diagnostic Data Vital Signs and I&O Vital Signs Date Time Temp Pulse Resp B/P B/P Pulse O2 O2 Flow FiO2 Mean Ox Delivery Rate 07/08 1137 80 146/90 99 Room Air 07/08 0800 Room Air 07/08 0727 98.1 80 25 160/84 98 Room Air 07/08 0400 97.7 80 19 165/72 99 Room Air 07/08 0000 98.5 73 16 145/66 98 Room Air 07/07 2305 98.5 77 18 141/64 98 Room Air 07/07 1708 98.0 78 22 190/118 97 Intake & Output 07/08 1600 07/08 0400 07/07 1600 07/07 0400 07/06 1600 07/06 0400 Intake Total 1000 Output Total 200 300 Balance -200 700 Intake, IV 1000 Intake, Oral 0 Output, Urine 200 300 Patient 125 lb 124 lb Weight Weight Reported by Patient Measurement Method Physical Exam: NAD, on CPAP VS as above. Eyes: anicteric, PERRLA Neck: no mass or thryomegaly Nodes: negative cervical/inguinal Skin: no rash or induration Lungs: clear P &A CV: no rub or murmur Abd: nontender, bs positive no organomegaly Exts: no edema, 1+ DP pulses Neuro: awake, A&O, CN grossly intact, no asterixis. Results Pertinent Lab Results: Laboratory Tests 07/08 07/08 07/07 0600 0512 2300 Chemistry Sodium (137 - 145 mmol/L) Cancelled 147 H 146 H Potassium (3.5 - 5.1 mmol/L) Cancelled 4.7 5.9 H Chloride (98 - 107 mmol/L) Cancelled 122 H 118 H Carbon Dioxide (22 - 30 mmol/L) Cancelled 15 L 14 L Anion Gap (5 - 16) Cancelled 10 13 BUN (9 - 20 mg/dL) Cancelled 82 H 89 H Creatinine (0.7 - 1.2 mg/dL) Cancelled 3.2 H 3.5 H Estimated GFR (>60 ml/min) 19 L 17 L BUN/Creatinine Ratio (7 - 25 %) Cancelled 25.6 H 25.4 H Iron (49 - 181 ug/dL) 45 L TIBC (261 - 462 ug/dL) 258 L Ferritin (17.9 - 464 ng/mL) 112.0 Troponin I (<0.11 ng/ml) 0.04 0.03 TSH (0.270 - 4.200 uIU/mL) 1.300 Free T4 (0.78 - 2.44 ng/dL) 1.56 Hematology CBC w Diff NO MAN DIFF REQ WBC (4.8 - 10.8 /CUMM) 8.9 RBC (4.70 - 6.10 /CUMM) 2.50 L Hgb (14.0 - 18.0 G/DL) 7.5 L Hct (42 - 52 %) 23.0 L MCV (80.0 - 94.0 FL) 92.0 MCH (27.0 - 31.0 PG) 30.1 MCHC (33.0 - 37.0 G/DL) 32.7 L RDW (11.5 - 14.5 %) 14.4 Plt Count (130 - 400 /CUMM) 193 MPV (7.4 - 10.4 FL) 8.3 Gran % (42.2 - 75.2 %) 73.9 Lymphocytes % (20.5 - 51.1 %) 15.5 L Monocytes % (1.7 - 9.3 %) 7.8 Eosinophils % (0 - 5 %) 2.3 Basophils % (0.0 - 2.0 %) 0.5 Absolute Granulocytes (1.4 - 6.5 /CUMM) 6.6 H Absolute Lymphocytes (1.2 - 3.4 /CUMM) 1.4 Absolute Monocytes (0.10 - 0.60 /CUMM) 0.7 H Absolute Eosinophils (0.0 - 0.7 /CUMM) 0.2 Absolute Basophils (0.0 - 0.2 /CUMM) 0 07/07 07/07 4862 5996 Chemistry Sodium (137 - 145 mmol/L) 141 Potassium (3.5 - 5.1 mmol/L) 6.0 *H Chloride (98 - 107 mmol/L) 115 H Carbon Dioxide (22 - 30 mmol/L) 13 L Anion Gap (5 - 16) 14 BUN (9 - 20 mg/dL) 96 H Creatinine (0.7 - 1.2 mg/dL) 3.5 H Estimated GFR (>60 ml/min) 17 L BUN/Creatinine Ratio (7 - 25 %) 27.4 H Glucose (65 - 99 mg/dL) 150 H Hemoglobin A1c (4.2 - 5.8 %) 7.4 H Calcium (8.4 - 10.2 mg/dL) 7.7 L Magnesium (1.6 - 2.3 mg/dL) 1.8 Total Bilirubin (0.2 - 1.3 mg/dL) 0.3 AST (17 - 59 U/L) 20 ALT (21 - 72 U/L) 30 Alkaline Phosphatase (< 127 U/L) 73 Troponin I (<0.11 ng/ml) Cancelled 0.03 Total Protein (6.3 - 8.2 g/dL) 6.1 L Albumin (3.5 - 5.0 g/dL) 3.5 Globulin (1.9 - 4.2 gm/dL) 2.6 Albumin/Globulin Ratio (1.1 - 2.2 %) 1.3 Hematology CBC w Diff NO MAN DIFF REQ WBC (4.8 - 10.8 /CUMM) 12.3 H RBC (4.70 - 6.10 /CUMM) 2.99 L Hgb (14.0 - 18.0 G/DL) 9.1 L Hct (42 - 52 %) 27.6 L MCV (80.0 - 94.0 FL) 92.1 MCH (27.0 - 31.0 PG) 30.2 MCHC (33.0 - 37.0 G/DL) 32.8 L RDW (11.5 - 14.5 %) 14.2 Plt Count (130 - 400 /CUMM) 202 MPV (7.4 - 10.4 FL) 8.7 Gran % (42.2 - 75.2 %) 81.2 H Lymphocytes % (20.5 - 51.1 %) 9.6 L Monocytes % (1.7 - 9.3 %) 6.4 Eosinophils % (0 - 5 %) 1.8 Basophils % (0.0 - 2.0 %) 1.0 Absolute Granulocytes (1.4 - 6.5 /CUMM) 10.0 H Absolute Lymphocytes (1.2 - 3.4 /CUMM) 1.2 Absolute Monocytes (0.10 - 0.60 /CUMM) 0.8 H Absolute Eosinophils (0.0 - 0.7 /CUMM) 0.2 Absolute Basophils (0.0 - 0.2 /CUMM) 0.1 Assessment/Plan Assessment/Recommendations Assessment: Patient with CKD stage 4, presented with mild hyperkalemia. Most likely this was dietary indiscretion as potassium have been around 5 recently with same creatinine. Difficult to identify the culprit food. Hemoglobin has dropped, partly due to volueme expansion but need to check stool for blood as GI bleed could also explain hyperkalemia. He apparently has had some insurance issue with EPO in past, he thinks his sister would know about this as she handles his financial issues. Recommendations: As renal function at baseline he doesn't need further study regarding his GFR. We should have dietary consult review low potassium, low phosphate, low salt diebetic diet. I would not start him on a chronic potassium binder unless he gets hyperkalemic after this counselling. Iron studies are adequate and although we could start him on Epo its not clear he is able/willing to take this as outpatient. We should contact sister and see if she knows any details. Thank you for this consult.
[2017-07-08 16:21] VITALS: BP 118/66
[2017-07-08 21:45] VITALS: BP 142/92
[2017-07-08 22:28] LABS: ABSOLUTE BASOPHIL COUNT 0 /CUMM (0.0-0.2); ABSOLUTE EOSINOPHIL COUNT 0.2 /CUMM (0.0-0.7); ABSOLUTE GRANULOCYTE CT 6.5 /CUMM (1.4-6.5); ABSOLUTE MONOCYTE COUNT 0.6 /CUMM (0.10-0.60); BASOPHIL % 0.2 % (0.0-2.0); EOSINOPHIL % 2.1 % (0-5); GRANULOCYTE % 78.9 % (42.2-75.2); HEMATOCRIT 25.3 % (42-52); MEAN CORPUSCULAR HGB 29.7 PG (27.0-31.0); MEAN CORPUSCULAR HGB CONC 32.2 G/DL (33.0-37.0); MEAN CORPUSCULAR VOLUME 92.1 FL (80.0-94.0); MEAN PLATELET VOLUME 9.1 FL (7.4-10.4); PLATELET COUNT 200 /CUMM (130-400); RBC DISTRIBUTION WIDTH 14.5 % (11.5-14.5); RED BLOOD CELL CT 2.74 /CUMM (4.70-6.10); WHITE BLOOD CELL COUNT 8.3 /CUMM (4.8-10.8)
[2017-07-09 02:00] VITALS: BP 136/88
[2017-07-09 06:05] VITALS: BP 142/80
--- NOTE | 2017-07-09 07:20 | PN- Housestaff ---
Jony Lopez MD 07/09/17 0720: Subjective Follow-up For: Hyperkalemia EKG changes Subjective: Patient seen and examined. He is seen lying on his side in bed resting comfortably. He appears to be in no acute distress. He reports feeling well and is requesting to go home today. He denies any new symptoms and only reports the chronic fatigue he has suffered from in the past year. He denies any evidence of bleeding, but admits to a history of anemia. Review of Systems Constitutional: Reports: see HPI. Objective Last 24 Hrs of Vital Signs/I&O Vital Signs Date Time Temp Pulse Resp B/P B/P Pulse O2 O2 Flow FiO2 Mean Ox Delivery Rate 07/09 1202 97.7 60 18 136/60 96 Room Air 07/09 1033 97 146/84 07/09 0605 97.7 75 20 142/80 97 07/09 0200 97.8 86 20 136/88 99 07/08 2145 98.1 89 20 142/92 98 Room Air 07/08 1621 98.1 71 18 118/66 98 Intake & Output 07/09 1600 07/09 0800 07/09 0000 Intake Total 250 Output Total Balance 250 Intake, IV 10 Intake, Oral 240 Number 1 0 Bowel Movements Patient 56.699 kg Weight Physical Exam General Appearance: Alert, Oriented X3, Cooperative, No Acute Distress Other Physical Findings: GEN: well developed, thin elderly man in no acute distress HEENT: NCAT, PERRL, EOMI, anicteric sclera, MMM NECK: Supple, no JVD, trachea midline CARD: Normal S1/S2 w/o m/g/r; RRR PULM: CTA bilaterally ABD: Soft, NT, ND, BS+ NEURO: Awake and alert, CN II-XII grossly intact EXT: normal pulses, no edema, various lower extremity wounds in various stages of healing Current Medications: Current Medications Sig/Ladonna Start time Last Medication Dose Route Stop Time Status Admin Acetaminophen 650 MG Q4P PRN 07/08 0900 AC PO Aspirin Buffered 81 MG DAILY 07/08 1000 AC 07/09 PO 103 Atorvastatin Calcium 80 MG QPM 07/08 2200 AC 07/08 PO 2113 Calcitriol 0.25 MCG DAILY 07/08 1000 AC 07/09 PO 103 Clopidogrel Bisulfate 75 MG DAILY 07/08 1000 AC 07/09 PO 1033 Ferrous Sulfate 325 MG DAILY 07/08 1000 AC 07/09 PO 1033 Heparin Sodium 5,000 UNIT Q8 07/08 0600 AC 07/09 (Porcine) SC 0604 Insulin Aspart 0 TIDAC 07/08 0800 AC 07/08 SC 1754 Insulin Detemir 5 UNITS BID 07/08 0014 AC 07/09 SC 1034 Metoprolol Succinate 12.5 MG DAILY 07/08 1000 AC 07/09 PO 1033 Patient Medication 1 ED ONE ONE 07/09 1130 DC Teaching ED 07/09 1131 Sodium Bicarbonate 1,300 MG TID 07/09 1028 AC 07/09 PO 1216 Last 24 Hrs of Lab/Aldo Results Last 24 Hrs of Labs/Mics: Laboratory Tests 07/08/172121: RBC 2.74 L, MCV 92.1, MCH 29.7, MCHC 32.2 L, RDW 14.5, MPV 9.1, Gran % 78.9 H , Lymphocytes % 12.0 L, Monocytes % 6.8, Eosinophils % 2.1, Basophils % 0.2, Absolute Granulocytes 6.5, Absolute Lymphocytes 1.0 L, Absolute Monocytes 0.6, Absolute Eosinophils 0.2, Absolute Basophils 0 Assessment/Plan Assessment: 77 year old man with multiple medical problems significant for CKD-IV, CAD, DCHF , and IDDM seen for evaluation of hyperkalemia found on pre-operative blood work. Patient is scheduled to undergo a left upper extremity AV fistula on and obtained blood work two days prior that demonstrated a markedly high potassium for which patient was instructed to report to the ED by his Keyboard Instrument Tuner Dr. Del Cid. Patient was admitted for persistent hyperkalemia with EKG changes. Patient feels well and has no complaints. potassium returned to normal. Patient is stated on sodium bicarb tablets to be taken three times daily. he is to follow up with Dr. Del Cid in two weeks time and to have his AF placed at [facility] on July 16. He is discharged to home with instruction to obtain a repeat serum chemistry in one week. Problem List -Hyperkalemia with EKG Changes -CAD s/p PCI with stent -Diastolic Heart Failure -Insulin-dependent diabetes mellitus -Chronic Kidney Disease, Stage IV -Hypertension -Hyperlipidemia Plan -DC to home -Guiac all stools -Type & cross -Accuchecks TIDAC with Novolog SSI -Levemir 5 units BID -Continue home meds: Atorvastatin, Aspirin, Calitriol, Plavix, Ferrous Sulfate, Metoprolol -Cardiology consult for EKG changes -Nephrology consult for CKD and hyperkalemia -Endocrinology consult for diabetes management -Nutrition consult for dietary instruction on Renal Diet -Pain control with acetaminophen -Diabetic Diet with 2g K/Phos restriction -DVT PPx with subcutaneous heparin -FULL CODE Problem List: 1. Acute electrocardiogram changes 2. Hyperkalemia Pain Ratin Pain Location: None Pain Goal: Remain pain free Pain Plan: See assessment Tomorrow's Labs & Rationales: NOne Angus MORALEZ,Morena 07/09/17 1343: Attending MD Review Statement Attending Statement Attending MD Statement: examined this patient, discuss w/resident/PA/COMPLETIONS ENGINEER, agreed w/resident/PA/COMPLETIONS ENGINEER, reviewed EMR data (avail), discussed with nursing, discussed with case mgmt, reviewed images, amended to note Attending Assessment/Plan: Patient seen and examined, feels well. Offers no complaints. Potassium did come down to normal yesterday. This morning blood work could not be drawn and patient is refusing be stuck again. Patient seen by nephrology and I discussed with Dr. Agustin. He recommends adding bicarbonate. Vital signs are stable. Patient had some peaking of the T waves. Has been followed by cardiology. Patient is scheduled to get AV shunt placement next week. Patient to follow with nephrology in the next 1-2 weeks and repeat BEP will be done in one week. Patient was seen by physical therapy and he is cleared for home discharge from physical therapy standpoint. We have also consulted director non profit. Patient otherwise medically stable for discharge.
--- NOTE | 2017-07-09 10:29 | PN- Nephrology ---
Assessment/Plan Nephrology Assessment: Hyperkalemia improved. Creatinine at baseline. Anemic, also not far from baseline but might benefit from outpatient HERNAN. Suggestion: Would start NaHCO3 650 mg, 2 tabs tid which will help with acidosis and potassium. Dietary instruction prior to discharge. He should follow up with Dr. Del Cid or one office APRNs in a couple weeks to see if we can get him started on EPO (he thinks there is an insurance issue). AF scheduled on July 16 at . Subjective Subjective: Patient feels well, no new complaints. Hasn't yet spoken to press maintainer about low potassium diet. Objective Vital Signs and I&Os Vital Signs Date Time Temp Pulse Resp B/P B/P Pulse O2 O2 Flow FiO2 Mean Ox Delivery Rate 07/09 0605 97.7 75 20 142/80 97 07/09 0200 97.8 86 20 136/88 99 07/08 2145 98.1 89 20 142/92 98 Room Air 07/08 1621 98.1 71 18 118/66 98 07/08 1137 80 146/90 99 Room Air Intake & Output 07/09 1600 07/09 0400 07/08 1600 07/08 0400 07/07 1600 07/07 0400 Intake Total 925 675 3889 Output Total 400 300 Balance 250 -40 700 Intake, IV 10 1000 Intake, Oral 240 360 0 Number 1 0 Bowel Movements Output, Urine 400 300 Patient 125 lb 124 lb Weight Weight Reported by Patient Measurement Method Physical Exam: NAD VS as above Lungs: clear CV: no rub Abd: non-tender Exts: no edema Neuro : A&O Current Medications: Current Medications Sig/Ladonna Start time Last Medication Dose Route Stop Time Status Admin Acetaminophen 650 MG Q4P PRN 07/08 0900 AC PO Aspirin Buffered 81 MG DAILY 07/08 1000 AC 07/08 PO 1136 Atorvastatin Calcium 80 MG QPM 07/08 2200 AC 07/08 PO 2113 Calcitriol 0.25 MCG DAILY 07/08 1000 AC 07/08 PO 1136 Clopidogrel Bisulfate 75 MG DAILY 07/08 1000 AC 07/08 PO 1136 Ferrous Sulfate 325 MG DAILY 07/08 1000 AC 07/08 PO 1136 Heparin Sodium 5,000 UNIT Q8 07/08 0600 AC 07/09 (Porcine) SC 0604 Insulin Aspart 0 TIDAC 07/08 0800 AC 07/08 SC 1754 Insulin Detemir 5 UNITS BID 07/08 0014 AC 07/08 SC 2114 Metoprolol Succinate 12.5 MG DAILY 07/08 1000 AC 07/08 PO 1136 Results Pertinent Lab Results: Laboratory Tests 07/08 07/08 07/08 212 0600 0512 Chemistry Sodium (137 - 145 mmol/L) Cancelled 147 H Potassium (3.5 - 5.1 mmol/L) Cancelled 4.7 Chloride (98 - 107 mmol/L) Cancelled 122 H Carbon Dioxide (22 - 30 mmol/L) Cancelled 15 L Anion Gap (5 - 16) Cancelled 10 BUN (9 - 20 mg/dL) Cancelled 82 H Creatinine (0.7 - 1.2 mg/dL) Cancelled 3.2 H Estimated GFR (>60 ml/min) 19 L BUN/Creatinine Ratio (7 - 25 %) Cancelled 25.6 H Iron (49 - 181 ug/dL) 45 L TIBC (261 - 462 ug/dL) 232 L Ferritin (17.9 - 464 ng/mL) 98.9 Troponin I (<0.11 ng/ml) 0.04 Hematology CBC w Diff NO MAN DIFF REQ WBC (4.8 - 10.8 /CUMM) 8.3 8.9 RBC (4.70 - 6.10 /CUMM) 2.74 L 2.50 L Hgb (14.0 - 18.0 G/DL) 8.1 L 7.5 L Hct (42 - 52 %) 25.3 L 23.0 L MCV (80.0 - 94.0 FL) 92.1 92.0 MCH (27.0 - 31.0 PG) 29.7 30.1 MCHC (33.0 - 37.0 G/DL) 32.2 L 32.7 L RDW (11.5 - 14.5 %) 14.5 14.4 Plt Count (130 - 400 /CUMM) 200 193 MPV (7.4 - 10.4 FL) 9.1 8.3 Gran % (42.2 - 75.2 %) 78.9 H 73.9 Lymphocytes % (20.5 - 51.1 %) 12.0 L 15.5 L Monocytes % (1.7 - 9.3 %) 6.8 7.8 Eosinophils % (0 - 5 %) 2.1 2.3 Basophils % (0.0 - 2.0 %) 0.2 0.5 Absolute Granulocytes (1.4 - 6.5 /CUMM) 6.5 6.6 H Absolute Lymphocytes (1.2 - 3.4 /CUMM) 1.0 L 1.4 Absolute Monocytes (0.10 - 0.60 /CUMM) 0.6 0.7 H Absolute Eosinophils (0.0 - 0.7 /CUMM) 0.2 0.2 Absolute Basophils (0.0 - 0.2 /CUMM) 0 0 07/07 07/07 07/07 2300 2254 1716 Chemistry Sodium (137 - 145 mmol/L) 146 H 141 Potassium (3.5 - 5.1 mmol/L) 5.9 H 6.0 *H Chloride (98 - 107 mmol/L) 118 H 115 H Carbon Dioxide (22 - 30 mmol/L) 14 L 13 L Anion Gap (5 - 16) 13 14 BUN (9 - 20 mg/dL) 89 H 96 H Creatinine (0.7 - 1.2 mg/dL) 3.5 H 3.5 H Estimated GFR (>60 ml/min) 17 L 17 L BUN/Creatinine Ratio (7 - 25 %) 25.4 H 27.4 H Glucose (65 - 99 mg/dL) 150 H Hemoglobin A1c (4.2 - 5.8 %) 7.4 H Calcium (8.4 - 10.2 mg/dL) 7.7 L Magnesium (1.6 - 2.3 mg/dL) 1.8 Iron (49 - 181 ug/dL) 45 L TIBC (261 - 462 ug/dL) 258 L Ferritin (17.9 - 464 ng/mL) 112.0 Total Bilirubin (0.2 - 1.3 mg/dL) 0.3 AST (17 - 59 U/L) 20 ALT (21 - 72 U/L) 30 Alkaline Phosphatase (< 127 U/L) 73 Troponin I (<0.11 ng/ml) 0.03 Cancelled 0.03 Total Protein (6.3 - 8.2 g/dL) 6.1 L Albumin (3.5 - 5.0 g/dL) 3.5 Globulin (1.9 - 4.2 gm/dL) 2.6 Albumin/Globulin Ratio (1.1 - 2.2 %) 1.3 TSH (0.270 - 4.200 uIU/mL) 1.300 Free T4 (0.78 - 2.44 ng/dL) 1.56 Hematology CBC w Diff NO MAN DIFF REQ WBC (4.8 - 10.8 /CUMM) 12.3 H RBC (4.70 - 6.10 /CUMM) 2.99 L Hgb (14.0 - 18.0 G/DL) 9.1 L Hct (42 - 52 %) 27.6 L MCV (80.0 - 94.0 FL) 92.1 MCH (27.0 - 31.0 PG) 30.2 MCHC (33.0 - 37.0 G/DL) 32.8 L RDW (11.5 - 14.5 %) 14.2 Plt Count (130 - 400 /CUMM) 202 MPV (7.4 - 10.4 FL) 8.7 Gran % (42.2 - 75.2 %) 81.2 H Lymphocytes % (20.5 - 51.1 %) 9.6 L Monocytes % (1.7 - 9.3 %) 6.4 Eosinophils % (0 - 5 %) 1.8 Basophils % (0.0 - 2.0 %) 1.0 Absolute Granulocytes (1.4 - 6.5 /CUMM) 10.0 H Absolute Lymphocytes (1.2 - 3.4 /CUMM) 1.2 Absolute Monocytes (0.10 - 0.60 /CUMM) 0.8 H Absolute Eosinophils (0.0 - 0.7 /CUMM) 0.2 Absolute Basophils (0.0 - 0.2 /CUMM) 0.1
[2017-07-09] MEDS ORDERED: SODIUM BICARBO650 M1 PO ×2 (10:31→12:12)
--- NOTE | 2017-07-09 10:33 | Patient Discharge Instructions ---
Discharge Instructions General Discharge Information Special Instructions: Schedule an appointment your trademark affixer Dr. Del Cid within a few weeks. You may need to restart EPO infusions. Your AF is scheduled at [facility] on July 16. Take Sodium Bicarb as directed, continue all your previous home medications. Obtain repeat blood work in one week. Acute Coronary Syndrome Inclusion Criteria At DC or during hospital stay patient has or had the following: ACS DIAGNOSIS No Discharge Core Measures Meds if any: Prescribed or Continued at Discharge Meds if any: NOT Prescribed or Continued at Discharge Congestive Heart Failure Inclusion Criteria At DC or during hospital stay patient has or had the following: CHF DIAGNOSIS No Discharge Core Measures Meds if any: Prescribed or Continued at Discharge Meds if any: NOT Prescribed or Continued at Discharge Cerebrovascular accident Inclusion Criteria At DC or during hospital stay patient has or had the following: CVA/TIA Diagnosis No Discharge Core Measures Meds if any: Prescribed or Continued at Discharge Meds if any: NOT Prescribed or Continued at Discharge Venous thromboembolism Inclusion Criteria VTE Diagnosis No VTE Type NONE VTE Confirmed by (Test) NONE Discharge Core Measures - Per Current guidelines, there needs to be overlap - treatment for the first 5 days of Warfarin therapy. - If discharged on Warfarin prior to 5 days of - overlap therapy, the patient will need to be - assessed for post discharge needs including - *Post discharge parental anticoagulation - *Warfarin and/or parental anticoagulation education - *Follow up date to check INR post discharge At least 5 days overlap therapy as Inpatient No Meds if any: Prescribed or Continued at Discharge Note: Overlap Therapy is Warfarin and Anticoagulant Meds if any: NOT Prescribed or Continued at Discharge
[2017-07-09 12:02] VITALS: BP 136/60
--- NOTE | 2017-07-13 15:44 | Discharge Summary ---
Visit Information Visit Dates Admission Date: 07/07/17 Discharge Date: 07/09/17 Hospital Course Course Attending Physician: Morena Greco MD Primary Care Physician: Ashley Tai MD Consulting Request: 1 Consulting Specialty: Cardiology Consulting Request: 2 Consulting Specialty: Nephrology Hospital Course: 77-year-old man with past medical history of coronary artery disease status post PCI with stent "10 years ago", hypertension, hyperlipidemia, diastolic heart failure, chronic kidney disease and insulin-dependent diabetes mellitus sent in by his instrument maker and repairer Dr. Del Cid for evaluation of abnormal blood work. Patient obtained preoperative blood work at [facility] in anticipation of his AV fistula on July 16 where his potassium was found to be markedly elevated to reportedly 7.0. Patient was contacted by his instrument maker and repairer who urged him to report to the [facility] for evaluation. At time of admission patient endorsed only chronic fatigue that was present for the past year with decreased oral intake and otherwise felt well. ED course -Vitals: Temp 98.0-98.5, HR 73-78, RR 16-22, BP 141-190/64-118, O2 97-98% on room air -CBC: WBC 12.3, Hgb/HCT 9.1/27.6, platelet 202 -BMP: Sodium 141, potassium 6.0, chloride 115, CO2 13, urea 96, creatinine 3.5, anion gap 14 -LFT: Within normal limits -Miscellaneous: Troponin I 0.03, magnesium 1.8 -EKG: NSR with peaked T waves -ED interventions: * Kayexalate 60 mL 2 * Calcium gluconate 1 g * Normal saline 2 L Problem list on admission -Hyperkalemia with EKG changes -Coronary artery disease status post PCI with stent -Diastolic heart failure -Chronic kidney disease -Anemia of chronic disease -Hypertension -Hyperlipidemia -Insulin-dependent diabetes mellitus Hospital course Patient was admitted to telemetry. We'll troponin/EKG remained negative and unchanged respectively. She received 2 doses of Kayexalate in the ED in addition to calcium gluconate with dextrose and insulin. Patient had subsequent multiple bowel movements. His serum chemistry was closely monitored with resolution of his hyperkalemia by the morning. Consults with cardiology and nephrology were placed. Patient was started on sodium bicarbonate tablets and was recommended to restart EPO as an outpatient. Patient is discharged to home with a prescription for sodium bicarbonate tablets and structure to follow-up with his instrument maker and repairer Oh Del Cid MD within a few weeks. He was told to report for his AV fistula procedure on July 16. He was given a prescription to repeat his serum chemistry in 1 week's time. Allergies: Coded Allergies: No Known Allergies (04/01/17) Disposition Summary Disposition Principal Diagnosis: Hyperkalemia Additional Diagnosis: None Discharge Disposition: home or self care Discharge Instructions General Discharge Information Code Status: Full Code Patient's Diet: Diabetic/renal diet Patient's Activity: Full activity as tolerated Follow-Up Instructions/Appts: Schedule an appointment your instrument maker and repairer Dr. Del Cid within a few weeks. You may need to restart EPO infusions. Your AF is scheduled at [facility] on July 16. Take Sodium Bicarb as directed, continue all your previous home medications. Obtain repeat blood work in one week. Medications at Discharge Discharge Medications: Continue taking these medications: Clopidogrel Bisulfate (Clopidogrel) 75 MG TABLET 1 Tablet ORAL DAILY Qty = 90 Comments: Last Taken: 07/09/17 Time: 1030 AM Metoprolol Succinate (Metoprolol Succinate) 25 MG TAB 1 Tablet ORAL DAILY Qty = 45 Comments: Last Taken: 07/09/17 Time: 1030 AM Insulin Aspart (Novolog) 100 UNIT/ML VIAL 8-10 Units Inject into fatty tissue TWICE DAILY as needed for DM Comments: Last Taken: 07/09/17 Time: 100 PM Insulin Glargine,Hum.rec.anlog (Lantus Solostar) 100 UNIT/ML (3 ML) INSULN.PEN 6-10 Unit Inject into fatty tissue Every night Comments: Last Taken:not given in the hospital LEVIMIR GIVEN 07/09/17 @ 1030 AM Atorvastatin Calcium (Atorvastatin Calcium) 80 MG TABLET 1 Tablet ORAL Every night Comments: Last Taken: 07/08/17 Time: 914 PM Ferrous Sulfate (Ferrous Sulfate) 325 MG (65 MG IRON) TABLET 1 Tablet ORAL DAILY Comments: Last Taken: 07/09/17 Time: 1030 AM Calcitriol (Calcitriol) 0.25 MCG CAPSULE 1 Capsule ORAL DAILY Comments: Last Taken: 07/09/17 Time: 1030 AM Aspirin (Ecotrin*) 81 MG TABLET.DR 1 Tablet ORAL DAILY Comments: Last Taken: 07/09/17 Time: 1030 AM Start taking the following new medications: Sodium Bicarbonate (Sodium Bicarbonate) 650 MG TABLET 2 Tablet ORAL THREE TIMES DAILY Qty = 180 No Refills Instructions: TAKE DIRECTED Comments: Last Taken: 07/09/17 Time: 1200 PM Copies To: [place] MORALEZ,Ashley; Nehemias MORALEZ,Oh Galvez; Rubio Cazares MD
== END 2017-07-09 13:43 | DRG 641 ==
LOC: ERH 16:50 → ERHI 22:17 → 2NB 22:17 → ERHI 07-08 07:22 → CANRESERV 07-08 12:45 → ENRESERV 07-08 12:45 → EDBEDREQ 07-08 13:23 → ENRESERV 07-08 14:09 → ENTRNSPT 07-08 14:19 → EDTRNSPT 07-08 14:25 → EDTRNSPTSTS 07-08 14:25 → 2NB 07-08 14:35 → CMPTRNSPT 07-08 14:46 → 2NB 07-09 07:25 → ENPENDDIS 07-09 12:19 → ENTRNSPT 07-09 13:27 → 2NB 07-09 13:43 → CMPTRNSPT 07-09 13:49
PROVIDERS: Internal Medicine Infectious Disease; Internal Medicine Interventional Cardiology; Physician Assistant Medical
DX: E87.5 Hyperkalemia (principal); N18.4 Chronic kidney disease, stage 4 (severe); E87.2 Acidosis; E11.22 Type 2 diabetes mellitus with diabetic chronic kidney disease; E11.65 Type 2 diabetes mellitus with hyperglycemia; E83.51 Hypocalcemia; I42.9 Cardiomyopathy, unspecified; I13.0 Hypertensive heart and chronic kidney disease with heart failure and stage 1 through stage 4 chronic kidney disease, or unspecified chronic kidney disease; I50.32 Chronic diastolic (congestive) heart failure; Z79.4 Long term (current) use of insulin; Z91.14 Patient's other noncompliance with medication regimen; D63.1 Anemia in chronic kidney disease; I25.10 Atherosclerotic heart disease of native coronary artery without angina pectoris; I25.2 Old myocardial infarction; E78.5 Hyperlipidemia, unspecified; Z87.891 Personal history of nicotine dependence; Z79.02 Long term (current) use of antithrombotics/antiplatelets
CPT/HCPCS: 2NBSP; ERO; 82436; 93005; 93010; 96374; 97116-GO; 97161-GP; 99291; J0610; J1644